=== PATIENT | female | born 1950 | race Caucasian/White ===

== ENCOUNTER 2019-06-29 06:39 | Inpatient (IN) | payer MEDICARE, MEDICAID ==
[2019-06-29] MEDS ORDERED: Sodium Chloride 0.9% 10 ML Syringe FLUSH PRN (07:04)
--- NOTE | 2019-06-29 08:09 | EDM.PDOC ---
ED HPI GENERAL MEDICAL PROBLEM - General Chief Complaint: General Stated Complaint: [facility] Time Seen by Provider: 06/29/19 06:53 Source of Information: Reports: Patient, EMS History Limitations: Reports: No Limitations - History of Present Illness INITIAL COMMENTS - FREE TEXT/NARRATIVE: The patient presents by [facility] because she could not walk to the bathroom this morning. She has a history of MS and she feels she is having a flair up of her MS. She said yesterday she felt a little nauseated and went to bed last night. She woke up this morning and had weakness in both legs with more in the left leg. She does have weakness in her left leg from her MS. She also has weakness in her arms and her hands were shaking. She denies any fever , chills, cough, headache, chest pain, shortness of breath, abdominal pain, vomiting, diarrhea or dysuria. The last time she needed IV steroids was a couple of years ago for a flare. Onset: Gradual Duration: Hour(s): Location: Reports: Generalized Severity: Moderate Improves with: Reports: None Worsens with: Reports: None Associated Symptoms: Reports: Nausea/Vomiting. Denies: Chest Pain, Fever/Chills , Headaches, Shortness of Breath - Related Data Allergies Allergy/AdvReac Type Severity Reaction Status Date / Time acetaminophen [From Percocet] Allergy Cannot Verified 06/29/19 06:47 Remember butorphanol [From Stadol] Allergy Cannot Verified 06/29/19 06:47 Remember glatiramer (copolymer 1) Allergy Cannot Verified 06/29/19 06:47 [From Copaxone] Remember interferon beta-1a Allergy Cannot Verified 06/29/19 06:47 [From Avonex] Remember morphine Allergy Itching Verified 06/29/19 06:47 oxycodone [From Percocet] Allergy Cannot Verified 06/29/19 06:47 Remember Penicillins Allergy Hives Verified 06/29/19 06:47 promethazine [From Phenergan] Allergy Cannot Verified 06/29/19 06:47 Remember Home Meds: Home Meds ARIPiprazole [Abilify] 20 mg PO DAILY 07/19/18 [History] Gabapentin [Neurontin] 600 mg PO QID 07/19/18 [History] Multivitamin [Multivitamins] 1 cap PO DAILY 07/19/18 [History] Omeprazole 40 mg PO DAILY 07/19/18 [History] Ramipril [Altace] 5 mg PO DAILY 07/19/18 [History] SitaGLIPtin [Januvia] 100 mg PO DAILY 07/19/18 [History] Sulfamethoxazole/Trimethoprim [Sulfamethoxazole-Tmp Ss Tablet] 1 tab PO BEDTIME 07/19/18 [History] Teriflunomide [Aubagio] 14 mg PO DAILY 07/19/18 [History] Venlafaxine HCl [Venlafaxine ER] 150 mg PO DAILY 07/19/18 [History] atorvaSTATin [Lipitor] 20 mg PO DAILY 07/19/18 [History] busPIRone [Buspar] 2 tab PO BID 07/19/18 [History] tiZANidine [Zanaflex] 4 mg PO DAILY 07/19/18 [History] traZODone HCl [Trazodone HCl] 50 mg PO BEDTIME 07/19/18 [History] Baclofen 10 mg PO TID 06/29/19 [History] Butalbital/Aspirin/Caffeine [Fiorinal 50-325-40 MG] 1 tab PO Q4HR 06/29/19 [ History] Cholecalciferol (Vitamin D3) [Vitamin D3] 2,000 unit PO DAILY 06/29/19 [History] Ciprofloxacin HCl [Cipro] 250 mg PO BID 06/29/19 [History] Insulin Aspart [NovoLOG] 8 - 15 units SUBCUT TIDMEALS 06/29/19 [History] Insulin Degludec [Tresiba] 54 units SUBCUT DAILY 06/29/19 [History] Naproxen 1 tab PO TID PRN 06/29/19 [History] Solifenacin Succinate [Vesicare] 10 mg PO DAILY 06/29/19 [History] Triamcinolone Acetonide [Triamcinolone Acetonide 0.1% Crm] 1 applic TOP BID [History] Vitamin B Complex 1 tab PO DAILY 06/29/19 [History] cloNIDine [Catapres] 0.1 mg PO BID 06/29/19 [History] cycloSPORINE [Restasis] 1 drop EYEBOTH BID 06/29/19 [History] traMADol [Ultram] 50 mg PO Q4HR PRN 06/29/19 [History] Past Medical History HEENT History: Reports: Cataract, Other (See Below) Other HEENT History: glasses Cardiovascular History: Reports: Hypertension Gastrointestinal History: Reports: GERD, Irritable Bowel Syndrome Genitourinary History: Reports: Urinary Incontinence, Other (See Below) Other Genitourinary History: self cath's, bladder lift [employer]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: , Other (See Below) Other [employer] OPERATOR History: hysterectomy Musculoskeletal History: Reports: Other (See Below) Other Musculoskeletal History: MS, left hip replacement Neurological History: Reports: MS Psychiatric History: Reports: Anxiety, Depression Endocrine/Metabolic History: Reports: Diabetes, Type II, Obesity/BMI 30+ Dermatologic History: Reports: Eczema - Past Surgical History GI Surgical History: Reports: Cholecystectomy - History Comment History Comment: Requesting oral anxiolytic Social & Family History - Tobacco Use Smoking Status *Q: Former Smoker Used Tobacco, but Quit: Yes Month/Year Tobacco Last Used: 10/02/07 - Caffeine Use Caffeine Use: Reports: Coffee, Soda - Recreational Drug Use Recreational Drug Use: No ED ROS GENERAL - Review of Systems Review Of Systems: See Below Constitutional: Reports: No Symptoms HEENT: Reports: No Symptoms Respiratory: Reports: No Symptoms Cardiovascular: Reports: No Symptoms Endocrine: Reports: No Symptoms GI/Abdominal: Reports: Nausea. Denies: Abdominal Pain : Reports: No Symptoms Musculoskeletal: Reports: No Symptoms Skin: Reports: No Symptoms ED EXAM, GENERAL - Physical Exam Exam: See Below Exam Limited By: No Limitations General Appearance: Alert, No Apparent Distress Ears: Normal External Exam Nose: Normal Inspection Head: Atraumatic, Normocephalic Neck: Normal Inspection Respiratory/Chest: No Respiratory Distress, Lungs Clear, Normal Breath Sounds Cardiovascular: Regular Rate, Rhythm, No Edema, No Murmur GI/Abdominal: Soft, Non-Tender, No Organomegaly, No Mass Back Exam: Normal Inspection Extremities: Normal Inspection Neurological: Alert, Oriented, Other (Weakness to both legs with more on the left. Good arm strength) EKG INTERPRETATION EKG Date: 06/29/19 Time: 07:23 Rhythm: NSR Rate (Beats/Min): 86 [place]: Normal P-Wave: Present QRS: Normal ST-T: Normal QT: Normal Course - Vital Signs Last Recorded V/S: Last Vital Signs Temp 97.0 F 06/29/19 06:44 Pulse 85 06/29/19 06:44 Resp 19 06/29/19 09:30 BP 142/64 H 06/29/19 07:30 Pulse Ox 93 L 06/29/19 09:30 - Orders/Labs/Meds Orders: Active Orders 24 hr Category Date Time Status Cardiac Monitoring [RC] . DIRECTED Care 06/29/19 07:04 Active EKG Documentation Completion [RC] STAT Care 06/29/19 07:04 Active Peripheral IV Care [RC] . DIRECTED Care 06/29/19 07:04 Active CXR [Chest 1V Frontal] [CR] Stat Exams 06/29/19 09:30 Ordered Head wo Cont [CT] Stat Exams 06/29/19 07:05 Taken Sodium Chloride 0.9% [Saline Flush] Med 06/29/19 07:04 Active 10 ml FLUSH ASDIRECTED PRN Peripheral IV Insertion Adult [OM.PC] Stat Oth 06/29/19 07:04 Ordered Medication Orders Sodium Chloride (Saline Flush) 10 ml FLUSH ASDIRECTED PRN PRN Reason: Keep Vein Open Last Admin: 06/29/19 07:59 Dose: 10 ml Labs: Laboratory Tests 06/29/19 06/29/19 06/29/19 Range/Units 06:50 06:50 07:53 WBC 14.55 H (3.98-10.04) K/mm3 RBC 4.60 (3.98-5.22) M/mm3 Hgb 13.9 (11.2-15.7) gm/dl Hct 42.5 (34.1-44.9) % MCV 92.4 (79.4-94.8) fl MCH 30.2 (25.6-32.2) pg MCHC 32.7 (32.2-35.5) g/dl RDW Std Deviation 49.6 H (36.4-46.3) fL Plt Count 192 (182-369) K/mm3 MPV 11.5 (9.4-12.3) fl Neut % (Auto) 83.4 H (34.0-71.1) % Lymph % (Auto) 6.8 L (19.3-51.7) % [place] % (Auto) 9.1 (4.7-12.5) % Eos % (Auto) 0.3 L (0.7-5.8) Baso % (Auto) 0.1 (0.1-1.2) % Neut # (Auto) 12.12 H (1.56-6.13) K/mm3 Lymph # (Auto) 0.99 L (1.18-3.74) K/mm3 [place] # (Auto) 1.33 H (0.24-0.36) K/mm3 Eos # (Auto) 0.05 (0.04-0.36) K/mm3 Baso # (Auto) 0.02 (0.01-0.08) K/mm3 Manual Slide Review Abnormal smear Sodium 133 L (136-145) mEq/L Potassium 4.5 (3.5-5.1) mEq/L Chloride 99 (98-107) mEq/L Carbon Dioxide 28 (21-32) mEq/L Anion Gap 10.5 (5-15) BUN 21 H (7-18) mg/dL Creatinine 0.9 (0.55-1.02) mg/dL Est Cr Clr Drug Dosing 47.32 mL/min Estimated GFR (MDRD) > 60 (>60) mL/min BUN/Creatinine Ratio 23.3 H (14-18) Glucose 120 H (80-115) mg/dL Calcium 9.3 (8.5-10.1) mg/dL Total Bilirubin 0.8 (0.2-1.0) mg/dL AST 70 H (15-37) U/L ALT 96 H (14-59) U/L Alkaline Phosphatase 85 (46-116) U/L Troponin I < 0.017 (0.00-0.056) ng/mL Total Protein 6.4 (6.4-8.2) g/dl Albumin 3.4 (3.4-5.0) g/dl Globulin 3.0 gm/dL Albumin/Globulin Ratio 1.1 (1-2) Urine Color Yellow (Yellow) Urine Appearance Clear (Clear) Urine pH 7.0 (5.0-8.0) Ur Specific [place] 1.020 (1.005-1.030) Urine Protein Negative (Negative) Urine Glucose (UA) Negative (Negative) Urine Ketones Negative (Negative) Urine Occult Blood Negative (Negative) Urine Nitrite Negative (Negative) Urine Bilirubin Negative (Negative) Urine Urobilinogen 0.2 (0.2-1.0) Ur Leukocyte Esterase Negative (Negative) Urine RBC Not seen (0-5) /hpf Urine WBC Not seen (0-5) /hpf Ur Epithelial Cells 0-5 (0-5) /hpf Urine Bacteria Not seen (FEW) /hpf Urine Mucus Not seen (FEW) /hpf Meds: Medications Generic Name Dose Route Start Last Admin Trade Name Kami PRN Reason Stop Dose Admin Sodium Chloride 10 ml 06/29/19 07:04 06/29/19 07:59 Saline Flush FLUSH 10 ml ASDIRECTED PRN Administration Keep Vein Open Discontinued Medications Generic Name Dose Route Start Last Admin Trade Name Freq PRN Reason Stop Dose Admin Methylprednisolone Sodium 258 mls @ 258 mls/hr 06/29/19 07:12 06/29/19 07:47 Succinate 1,000 mg/ Sodium IV 06/29/19 07:13 258 mls/hr Chloride ONETIME ONE Administration - Re-Assessments/Exams Free Text/Narrative Re-Assessment/Exam: 06/29/19 08:08 I ordered an IV saline lock, CT of her head, EKG, labs and solu-medrol 1 gram IV. 06/29/19 09:09 Her WBC was slightly elevated at 14.55. Her Na was low at 133. Her glucose is 120. Her AST is 70. Her ALT is 96. Her troponin is negative. Her UA shows no UTI. 06/29/19 09:34 I had my nurse get the patient up and try to walk. She was unsteady and needed help. I do not think she will be safe to go home yet. Her oxygen saturations at times will drip into the upper 80s. Her lungs sounded good and she has no cough. I will have my nurse put her on some oxygen and I will get a CXR. I will call the neurologist semiconductor testing group leader at [facility]. 06/29/19 09:[address] Greco the neurologist semiconductor testing group leader at [facility] and he did recommend the solu-medrol and admission. He did not think she needed to come to [place] at this time. I called Dr Feliciano and he agreed to the admission. Her CXR looks good. Departure - Departure Time of Disposition: 10:00 Disposition: Refer to Observation Condition: Good Clinical Impression: Multiple sclerosis exacerbation, Generalized weakness - Discharge Information Referrals: Nancy Lubin NP [Primary Care Provider] - Forms: ED Department Discharge - My Orders Last 24 Hours: My Active Orders 06/29/19 07:04 Cardiac Monitoring [RC] . DIRECTED EKG Documentation Completion [RC] STAT Peripheral IV Care [RC] . DIRECTED Sodium Chloride 0.9% [Saline Flush] 10 ml FLUSH ASDIRECTED PRN Peripheral IV Insertion Adult [OM.PC] Stat 06/29/19 07:05 Head wo Cont [CT] Stat 06/29/19 09:30 CXR [Chest 1V Frontal] [CR] Stat - Assessment/Plan Last 24 Hours: My Active Orders 06/29/19 07:04 Cardiac Monitoring [RC] . DIRECTED EKG Documentation Completion [RC] STAT Peripheral IV Care [RC] . DIRECTED Sodium Chloride 0.9% [Saline Flush] 10 ml FLUSH ASDIRECTED PRN Peripheral IV Insertion Adult [OM.PC] Stat 06/29/19 07:05 Head wo Cont [CT] Stat 06/29/19 09:30 CXR [Chest 1V Frontal] [CR] Stat
[2019-06-29] MEDS ORDERED: Acetaminophen 325 MG Tab PO PRN (12:50)
[2019-06-29] MEDS ORDERED: Ondansetron 4 MG/2 ML SDV IV PRN (12:50)
[2019-06-29] MEDS ORDERED: traMADol 50 MG Tab PO PRN (13:02)
[2019-06-29] MEDS ORDERED: Triamcinolone Acetonide 0.1% Crm 15 GM Tube TOP PRN (13:02)
[2019-06-29] MEDS ORDERED: Albuterol/Ipratropium 3.0-0.5 MG/3 ML Neb Soln NEB PRN (13:32)
--- NOTE | 2019-06-29 13:45 | PCM.HP.2 ---
H&P History of Present Illness - General Date of Service: 06/29/19 Admit Problem/Dx: Admission Diagnosis/Problem Admission Diagnosis/Problem Multiple sclerosis - History of Present Illness Initial Comments - Free Text/Narative: 69-year-old female with history of MS for 40 years presents to the emergency room with weakness. Patient states that yesterday she developed an upset stomach and generalized weakness. She developed difficulty walking and her hands became shaky and weak. Then she was having difficulty even standing in the shower and was unable to comb her hair because of weakness. She would to bed at 9:00 last night and woke up at 5:00 this morning feeling drunk. Patient rarely drinks and then drink recently. She called a friend and then called EMS. Patient denies any fever, chills, pain, shortness breath, chest pain, nausea, vomiting, headache. She did have 4 loose bowel movements yesterday but no bowel movement today. She denies any hematochezia or melena. When patient arrived in the emergency room she was mildly hypoxic with the oxygen saturation initially at 92%. Recheck showed her to be down to 85%. Patient states that often she is told at the clinic to take deep breaths because she has low oxygenation. She does have a history of smoking and stopped 11 years ago. She smoked between the ages of 19 and 58 off and on up to a pack per day. She has no history of lung disease. She denies any cough, productive sputum, or shortness of breath. She stated yesterday she had some difficulty swallowing which has resolved. In the emergency room a CT of her head, EKG, and chest x-ray were performed. All were normal. Labs included a white count that was slightly elevated at 14.55 , sodium of 133, glucose 120, AST 70, ALT 96, negative troponin, and negative UA for UTI. Patient was given 1 g IV of Solu-Medrol. Dr. Greco in neurology from [facility] in [place] was called by the emergency room physician. Dr. Greco was not convinced that this is an MS exacerbation. It was felt that we would keep her secondary to her weakness and continue her on Solu- Medrol. She is insulin-dependent diabetic. - Related Data Allergies/Adverse Reactions: Allergies Allergy/AdvReac Type Severity Reaction Status Date / Time acetaminophen [From Percocet] Allergy Cannot Verified 06/29/19 06:47 Remember butorphanol [From Stadol] Allergy Cannot Verified 06/29/19 06:47 Remember glatiramer (copolymer 1) Allergy Cannot Verified 06/29/19 06:47 [From Copaxone] Remember interferon beta-1a Allergy Cannot Verified 06/29/19 06:47 [From Avonex] Remember morphine Allergy Itching Verified 06/29/19 06:47 oxycodone [From Percocet] Allergy Cannot Verified 06/29/19 06:47 Remember Penicillins Allergy Hives Verified 06/29/19 06:47 promethazine [From Phenergan] Allergy Cannot Verified 06/29/19 06:47 Remember Home Medications: Home Meds ARIPiprazole [Abilify] 20 mg PO BEDTIME 07/19/18 [History] Gabapentin [Neurontin] 600 mg PO QID 07/19/18 [History] Multivitamin [Multivitamins] 1 cap PO DAILY 07/19/18 [History] Omeprazole 40 mg PO DAILY 07/19/18 [History] Ramipril [Altace] 5 mg PO DAILY 07/19/18 [History] SitaGLIPtin [Januvia] 100 mg PO DAILY 07/19/18 [History] Sulfamethoxazole/Trimethoprim [Sulfamethoxazole-Tmp Ss Tablet] 1 tab PO BEDTIME 07/19/18 [History] Teriflunomide [Aubagio] 14 mg PO DAILY 07/19/18 [History] Venlafaxine HCl [Venlafaxine ER] 150 mg PO DAILY 07/19/18 [History] atorvaSTATin [Lipitor] 20 mg PO DAILY 07/19/18 [History] busPIRone [Buspar] 30 mg PO BID 07/19/18 [History] tiZANidine [Zanaflex] 4 mg PO DAILY 07/19/18 [History] traZODone HCl [Trazodone HCl] 50 mg PO BEDTIME 07/19/18 [History] Baclofen 10 mg PO TID 06/29/19 [History] Cholecalciferol (Vitamin D3) [Vitamin D3] 2,000 unit PO DAILY 06/29/19 [History] Insulin Aspart [NovoLOG] 8 units SUBCUT TIDMEALS 06/29/19 [History] Insulin Degludec [Tresiba] 65 units SUBCUT DAILY 06/29/19 [History] Naproxen 500 mg PO TID PRN 06/29/19 [History] Oxybutynin [Oxybutynin ER] 10 mg PO DAILY 06/29/19 [History] Solifenacin Succinate [Vesicare] 10 mg PO DAILY 06/29/19 [History] Triamcinolone Acetonide [Triamcinolone Acetonide 0.1% Crm] 1 applic TOP BID PRN 06/29/19 [History] Vitamin B Complex 1 tab PO DAILY 06/29/19 [History] cloNIDine [Catapres] 0.1 mg PO BID 06/29/19 [History] cycloSPORINE [Restasis] 1 drop EYEBOTH BID 06/29/19 [History] traMADol [Ultram] 50 mg PO Q4HR PRN 06/29/19 [History] Past Medical History HEENT History: Reports: Cataract, Other (See Below) Other HEENT History: glasses Cardiovascular History: Reports: Hypertension Gastrointestinal History: Reports: GERD, Irritable Bowel Syndrome, Other (See Below) Other Gastrointestinal History: partial bowel obstruction with sx around 1991 Genitourinary History: Reports: Urinary Incontinence, Other (See Below) Other Genitourinary History: self cath's, bladder lift HEMSTITCHER History: Reports: , Other (See Below) Other OB/BYN History: hysterectomy Musculoskeletal History: Reports: Arthritis, Other (See Below) Other Musculoskeletal History: MS, left hip replacement, back sx-laminectomy Neurological History: Reports: MS Psychiatric History: Reports: Anxiety, Depression Endocrine/Metabolic History: Reports: Diabetes, Type II, Obesity/BMI 30+ Dermatologic History: Reports: Eczema - Infectious Disease History Infectious Disease History: Reports: Shingles - Past Surgical History HEENT Surgical History: Reports: Adenoidectomy, Tonsillectomy GI Surgical History: Reports: Cholecystectomy - History Comment History Comment: Requesting oral anxiolytic Social & Family History - Family History Family Medical History: Noncontributory - Tobacco Use Smoking Status *Q: Former Smoker Used Tobacco, but Quit: Yes Month/Year Tobacco Last Used: 10/2007 Second Hand Smoke Exposure: No - Caffeine Use Caffeine Use: Reports: Coffee - Recreational Drug Use Recreational Drug Use: No H&P Review of Systems - Review of Systems: Review Of Systems: ROS reveals no pertinent complaints other than HPI. Exam - Exam Exam: See Below - Vital Signs Vital Signs: Last Vital Signs Temp 97.0 F 06/29/19 06:44 Pulse 85 06/29/19 06:44 Resp 19 06/29/19 09:30 BP 142/64 H 06/29/19 07:30 Pulse Ox 93 L 06/29/19 09:30 Weight: 187 lb 8 oz - Exam Quality Assessment: Supplemental Oxygen General: Alert, Oriented, 4 HEENT: Conjunctiva Clear, EOMI, Hearing Intact, Mucosa Moist & [place], Nares Patent, PERRLA Neck: Supple, Trachea Midline, 2 Lungs: Clear to Auscultation, Normal Respiratory Effort. No: Wheezing Cardiovascular: Regular Rate, Regular Rhythm GI/Abdominal Exam: Normal Bowel Sounds, Soft, Non-Tender, No Organomegaly, No Distention, No Abnormal Bruit, No Mass Extremities: Normal Inspection, Normal Range of Motion, Non-Tender, No Pedal Edema, Normal Capillary Refill Skin: Warm, Dry, Intact Neurological: Cranial Nerves Intact Neuro Extensive - Mental Status: Alert, Oriented x3, Normal Mood/Affect, Normal Cognition, Memory Intact Neuro Extensive - Motor, Sensory, Reflexes: CN II-XII Intact, Other ( generalized weaknessin her upper and lower extremities.). No: Tremor Psychiatric: Alert, Normal Affect, Normal Mood - Patient Data Lab Results Last 24 hrs: Laboratory Results - last 24 hr 06/29/19 06/29/19 06/29/19 Range/Units 06:50 06:50 07:53 WBC 14.55 H (3.98-10.04) K/mm3 RBC 4.60 (3.98-5.22) M/mm3 Hgb 13.9 (11.2-15.7) gm/dl Hct 42.5 (34.1-44.9) % MCV 92.4 (79.4-94.8) fl MCH 30.2 (25.6-32.2) pg MCHC 32.7 (32.2-35.5) g/dl RDW Std Deviation 49.6 H (36.4-46.3) fL Plt Count 192 (182-369) K/mm3 MPV 11.5 (9.4-12.3) fl Neut % (Auto) 83.4 H (34.0-71.1) % Lymph % (Auto) 6.8 L (19.3-51.7) % [place] % (Auto) 9.1 (4.7-12.5) % Eos % (Auto) 0.3 L (0.7-5.8) Baso % (Auto) 0.1 (0.1-1.2) % Neut # (Auto) 12.12 H (1.56-6.13) K/mm3 Lymph # (Auto) 0.99 L (1.18-3.74) K/mm3 [place] # (Auto) 1.33 H (0.24-0.36) K/mm3 Eos # (Auto) 0.05 (0.04-0.36) K/mm3 Baso # (Auto) 0.02 (0.01-0.08) K/mm3 Manual Slide Review Abnormal smear Sodium 133 L (136-145) mEq/L Potassium 4.5 (3.5-5.1) mEq/L Chloride 99 (98-107) mEq/L Carbon Dioxide 28 (21-32) mEq/L Anion Gap 10.5 (5-15) BUN 21 H (7-18) mg/dL Creatinine 0.9 (0.55-1.02) mg/dL Est Cr Clr Drug Dosing 47.32 mL/min Estimated GFR (MDRD) > 60 (>60) mL/min BUN/Creatinine Ratio 23.3 H (14-18) Glucose 120 H (80-115) mg/dL Calcium 9.3 (8.5-10.1) mg/dL Total Bilirubin 0.8 (0.2-1.0) mg/dL AST 70 H (15-37) U/L ALT 96 H (14-59) U/L Alkaline Phosphatase 85 (46-116) U/L Troponin I < 0.017 (0.00-0.056) ng/mL Total Protein 6.4 (6.4-8.2) g/dl Albumin 3.4 (3.4-5.0) g/dl Globulin 3.0 gm/dL Albumin/Globulin Ratio 1.1 (1-2) Urine Color Yellow (Yellow) Urine Appearance Clear (Clear) Urine pH 7.0 (5.0-8.0) Ur Specific [place] 1.020 (1.005-1.030) Urine Protein Negative (Negative) Urine Glucose (UA) Negative (Negative) Urine Ketones Negative (Negative) Urine Occult Blood Negative (Negative) Urine Nitrite Negative (Negative) Urine Bilirubin Negative (Negative) Urine Urobilinogen 0.2 (0.2-1.0) Ur Leukocyte Esterase Negative (Negative) Urine RBC Not seen (0-5) /hpf Urine WBC Not seen (0-5) /hpf Ur Epithelial Cells 0-5 (0-5) /hpf Urine Bacteria Not seen (FEW) /hpf Urine Mucus Not seen (FEW) /hpf Result Diagrams: 06/29/19 06:50 06/29/19 06:50 Problem List Initiated/Reviewed/Updated: Yes Orders Last 24hrs: Active Orders 24 hr Category Date Time Status Patient Status [ADT] Routine ADT 06/29/19 12:51 Active Blood Glucose Check, Bedside [RC] WITHMEALSANDBED Care 06/29/19 12:50 Active Cardiac Monitoring [RC] . DIRECTED Care 06/29/19 07:04 Active EKG Documentation Completion [RC] STAT Care 06/29/19 07:04 Active Oxygen Therapy [RC] PRN Care 06/29/19 12:51 Active Peripheral IV Care [RC] Q2HR Care 06/29/19 07:04 Active RT Aerosol Therapy [RC] ASDIRECTED Care 06/29/19 13:33 Ordered RT Incentive Spirometry [RC] ASDIRECTED Care 06/29/19 13:32 Ordered Up With Assistance [RC] ASDIRECTED Care 06/29/19 12:50 Active VTE/DVT Education [RC] PER UNIT ROUTINE Care 06/29/19 12:51 Active Vital Signs [RC] Q4H Care 06/29/19 12:51 Active OT Evaluation and Treatment [CONS] Routine Cons 06/29/19 12:54 Active PT Evaluation and Treatment [CONS] Routine Cons 06/29/19 12:54 Active Consistent Carbohydrate Diet [DIET] Diet 06/29/19 Dinner Active CXR [Chest 1V Frontal] [CR] Stat Exams 06/29/19 09:30 Taken Head wo Cont [CT] Stat Exams 06/29/19 07:05 Taken CBC WITH AUTO DIFF [HEME] AM Lab 06/30/19 05:11 Ordered CBC WITH AUTO DIFF [HEME] AM Lab 07/01/19 05:11 Ordered CBC WITH AUTO DIFF [HEME] AM Lab 07/02/19 05:11 Ordered CBC WITH AUTO DIFF [HEME] AM Lab 07/03/19 05:11 Ordered CBC WITH AUTO DIFF [HEME] AM Lab 07/04/19 05:11 Ordered CBC WITH AUTO DIFF [HEME] AM Lab 07/05/19 05:11 Ordered COMPREHENSIVE METABOLIC PN,CMP [CHEM] AM Lab 06/30/19 05:11 Ordered COMPREHENSIVE METABOLIC PN,CMP [CHEM] AM Lab 07/01/19 05:11 Ordered COMPREHENSIVE METABOLIC PN,CMP [CHEM] AM Lab 07/02/19 05:11 Ordered COMPREHENSIVE METABOLIC PN,CMP [CHEM] AM Lab 07/03/19 05:11 Ordered COMPREHENSIVE METABOLIC PN,CMP [CHEM] AM Lab 07/04/19 05:11 Ordered COMPREHENSIVE METABOLIC PN,CMP [CHEM] AM Lab 07/05/19 05:11 Ordered MAGNESIUM [CHEM] AM Lab 06/30/19 05:11 Ordered MAGNESIUM [CHEM] AM Lab 07/01/19 05:11 Ordered MAGNESIUM [CHEM] AM Lab 07/02/19 05:11 Ordered MAGNESIUM [CHEM] AM Lab 07/03/19 05:11 Ordered MAGNESIUM [CHEM] AM Lab 07/04/19 05:11 Ordered MAGNESIUM [CHEM] AM Lab 07/05/19 05:11 Ordered ARIPiprazole [Abilify] Med 06/30/19 21:00 Active 20 mg PO BEDTIME Acetaminophen [Tylenol] Med 06/29/19 12:50 Active 650 mg PO Q4H PRN Albuterol/Ipratropium [DuoNeb 3.0-0.5 MG/3 ML] Med 06/29/19 13:32 Ordered 3 ml NEB Q4HRRT PRN Alogliptin Benzoate [Alogliptin] Med 06/30/19 09:00 Active 25 mg PO DAILY Baclofen [Lioresal] Med 06/29/19 15:00 Active 10 mg PO TID Cholecalciferol (Vitamin D3) [Vitamin D3] Med 06/30/19 09:00 Active 50 mcg PO DAILY Enoxaparin [Lovenox] Med 06/30/19 09:00 Active 40 mg SUBCUT DAILY Gabapentin [Neurontin] Med 06/29/19 17:00 Active 600 mg PO QID Insulin Degludec [Tresiba] Med 06/30/19 09:00 Ordered 65 units SUBCUT DAILY Insulin Lispro [HumaLOG] Med 06/29/19 17:00 Active 8 unit SUBCUT TIDMEALS Insulin Lispro [HumaLOG] Med 06/29/19 17:00 Ordered See Protocol SUBCUT QIDACANDBED Lisinopril [Prinivil] Med 06/30/19 09:00 Active 10 mg PO DAILY Multivitamins,Therapeutic [Thera] Med 06/30/19 09:00 Active 1 each PO DAILY Ondansetron [Zofran] Med 06/29/19 12:50 Active 4 mg IV Q4H PRN Oxybutynin [Oxybutynin ER] Med 06/30/19 09:00 Active 10 mg PO DAILY Pantoprazole [ProTONIX] Med 06/30/19 07:00 Active 40 mg PO DAILY@0700 Simvastatin [Zocor] Med 06/30/19 21:00 Active 20 mg PO BEDTIME Sodium Chloride 0.9% [Saline Flush] Med 06/29/19 07:04 Active 10 ml FLUSH ASDIRECTED PRN Sulfamethoxazole/Trimethoprim Med 06/29/19 21:00 Pending 1 tab PO BEDTIME Teriflunomide [Aubagio] Med 06/30/19 09:00 Pending 14 mg PO DAILY Triamcinolone Acetonide [Triamcinolone Acetonide 0.1% Med 06/29/19 13:02 Active Crm] 0 gm TOP BID PRN Trospium [Sanctura] Med 06/30/19 09:00 Active 20 mg PO BID Venlafaxine [Effexor XR] Med 06/30/19 09:00 Active 150 mg PO DAILY Vitamin B Complex Med 06/30/19 09:00 Pending 1 tab PO DAILY busPIRone [Buspar] Med 06/29/19 21:00 Active 30 mg PO BID cloNIDine [Catapres] Med 06/29/19 21:00 Active 0.1 mg PO BID cycloSPORINE Med 06/29/19 21:00 Ordered 1 drop EYEBOTH BID methylPREDNISolone Sod Succ [Solu-MEDROL] Med 06/30/19 09:00 Ordered 1,000 mg IVPUSH DAILY tiZANidine [Zanaflex] Med 06/30/19 09:00 Active 4 mg PO DAILY traMADol [Ultram] Med 06/29/19 13:02 Active 50 mg PO Q4HR PRN traZODone Med 06/29/19 21:00 Active 50 mg PO BEDTIME Peripheral IV Insertion Adult [OM.PC] Stat Oth 06/29/19 07:04 Ordered Resuscitation Status Routine Resus Stat 06/29/19 12:50 Ordered Medication Orders Acetaminophen (Tylenol) 650 mg PO Q4H PRN PRN Reason: Pain (Mild 1-3)/fever Albuterol/Ipratropium (Duoneb 3.0-0.5 Mg/3 Ml) 3 ml NEB Q4HRRT PRN PRN Reason: Hypoxia Alogliptin Benzoate (Alogliptin) 25 mg PO DAILY [facility] Aripiprazole (Abilify) 20 mg PO BEDTIME [facility] Baclofen (Lioresal) 10 mg PO TID [facility] Buspirone HCl (Buspar) 30 mg PO BID [facility] Cholecalciferol (Vitamin D3) 50 mcg PO DAILY [facility] Clonidine HCl (Catapres) 0.1 mg PO BID [facility] Enoxaparin Sodium (Lovenox) 40 mg SUBCUT DAILY [facility] Gabapentin (Neurontin) 600 mg PO QID [facility] Insulin Glargine (Lantus) 65 unit SUBCUT DAILY [facility] Insulin Human Lispro (Humalog) 8 unit SUBCUT TIDMEALS [facility] Insulin Human Lispro (Humalog) 0 unit SUBCUT QIDACANDBED [facility]; Protocol Lisinopril (Prinivil) 10 mg PO DAILY [facility] Multivitamins (Thera) 1 each PO DAILY [facility] Non-Formulary Medication (Cyclosporine) 1 drop EYEBOTH BID [facility] Non-Formulary Medication (Sulfamethoxazole/Trimethoprim) 1 tab PO BEDTIME [facility] Non-Formulary Medication (Teriflunomide [Aubagio]) 14 mg PO DAILY [facility] Non-Formulary Medication (Vitamin B Complex) 1 tab PO DAILY [facility] Ondansetron HCl (Zofran) 4 mg IV Q4H PRN PRN Reason: Nausea/Vomiting Oxybutynin Chloride (Oxybutynin Er) 10 mg PO DAILY [facility] Pantoprazole Sodium (Protonix) 40 mg PO DAILY@0700 [facility] Simvastatin (Zocor) 20 mg PO BEDTIME [facility] Sodium Chloride (Saline Flush) 10 ml FLUSH ASDIRECTED PRN PRN Reason: Keep Vein Open Last Admin: 06/29/19 07:59 Dose: 10 ml Tizanidine HCl (Zanaflex) 4 mg PO DAILY [facility] Tramadol HCl (Ultram) 50 mg PO Q4HR PRN PRN Reason: Pain Trazodone HCl (Trazodone) 50 mg PO BEDTIME [facility] Triamcinolone Acetonide (Triamcinolone Acetonide 0.1% Crm) 0 gm TOP BID PRN PRN Reason: eczema Trospium (Sanctura) 20 mg PO BID [facility] Venlafaxine HCl (Effexor Xr) 150 mg PO DAILY [facility] Assessment/Plan Comment:: Assessment * 69-year-old female with history of multiple sclerosis admitted for generalized weakness - I spoke to Dr. Greco and he stated we could try a Medrol 1 g for 3 days. He stated that if this is an MS exacerbation and will take days to weeks for resolution. We could do up to 5 days of steroids, but because of her diabetes we could limited to 3 days. * Hypoxemia with no known lung disease. Patient does have a 29 year history of smoking, stopped 11 years ago. * Insulin-dependent diabetes * Chronic medical issues including arthritis, diabetes, hyperlipidemia, hypertension, anxiety/depression Plan * admit to MedSurg * Solu-Medrol 1 g daily for 3 days * continue home insulin and add sliding scale. * Fingerstick blood sugar 4 times a day * FiO2 to keep SPO2 greater than 92%. * Incidental spirometry and nebulizers when necessary * Reconcile home meds * MRI of the brain on Monday * PT/OT/speech therapy - not available on weekends * VTE prophylaxis with Lovenox * CODE STATUS full code * Length of stay 2-3 days - Mortality Measure Prognosis:: Poor
[2019-06-29] MEDS: Baclofen 10 MG Tab PO SCH ×2 (14:55→21:40)
[2019-06-29] MEDS: Insulin Lispro 100 Units/ML 3 ML Vial SUBCUT SCH ×3 (16:22→21:44)
[2019-06-29] MEDS: Gabapentin 600 MG Tab PO SCH ×2 (16:23→21:40)
[2019-06-29] MEDS: busPIRone 15 MG Tab PO SCH (21:37)
[2019-06-29] MEDS: cloNIDine 0.1 MG Tab PO SCH (21:38)
[2019-06-29] MEDS: RESTASIS EYE EYEBOTH SCH (21:39)
[2019-06-29] MEDS: traZODone 50 MG Tab PO SCH (21:40)
[2019-06-29] MEDS: Sulfamethoxazole/Trimethoprim 800-160 MG Tab PO SCH (21:40)
[2019-06-30] MEDS: Pantoprazole 40 MG Tab.CR PO SCH (07:19)
[2019-06-30] MEDS: Insulin Lispro 100 Units/ML 3 ML Vial SUBCUT SCH ×7 (08:06→21:06)
[2019-06-30] MEDS: Multivitamins,Therapeutic Tab PO SCH (08:34)
[2019-06-30] MEDS: Vitamin B Complex With Vitamin C Cap PO SCH (08:35)
[2019-06-30] MEDS: Lisinopril 10 MG Tab PO SCH (08:36)
[2019-06-30] MEDS: Cholecalciferol (Vitamin D3) 25 MCG Tab PO SCH (08:37)
[2019-06-30] MEDS: Oxybutynin 5 MG Tab.ER PO SCH (08:37)
[2019-06-30] MEDS: Trospium 20 MG Tab PO SCH ×2 (08:38→21:02)
[2019-06-30] MEDS: Gabapentin 600 MG Tab PO SCH ×4 (08:39→21:00)
[2019-06-30] MEDS: cloNIDine 0.1 MG Tab PO SCH ×2 (08:40→21:02)
[2019-06-30] MEDS: Baclofen 10 MG Tab PO SCH ×3 (08:40→21:01)
[2019-06-30] MEDS: busPIRone 15 MG Tab PO SCH ×2 (08:42→21:00)
[2019-06-30] MEDS: Venlafaxine 75 MG Cap.ER PO SCH (08:43)
[2019-06-30] MEDS: tiZANidine 4 MG Tab PO SCH (08:43)
[2019-06-30] MEDS: Enoxaparin 40 MG/0.4 ML Syringe SUBCUT SCH (08:44)
[2019-06-30] MEDS: Insulin Glarg,Human.Rec.Analog 100 UNIT/ML ML SUBCUT SCH (08:45)
[2019-06-30] MEDS: TERIFLUNOMIDE 14 MG PO SCH (08:57)
[2019-06-30] MEDS ORDERED: methylPREDNISolone Sodium Succinate 125 MG/2 ML SDV IVPUSH SCH (09:00)
[2019-06-30] MEDS: RESTASIS EYE EYEBOTH SCH ×2 (09:30→21:05)
--- NOTE | 2019-06-30 10:57 | CT ---
Head CT Technique: Multiple axial sections through the brain were obtained. Intravenous contrast was not utilized. Comparison: Prior head CT exam of 10/31/09 and most recent intracranial imaging MRI brain on 12/13/17. Findings: Ventricles along with basal cisterns and sulci over the convexities are within normal limits for the patient's age. Mild areas of diminished density are noted within the periventricular white matter which appear stable from previous MRI. No other abnormal parenchymal densities are seen. No evidence of intracranial hemorrhage. No midline shift or mass effect is seen. Bone window settings were reviewed which show no acute calvarial abnormality. Visualized sinuses are clear. Impression: 1. Nothing acute is appreciated on noncontrast head CT study. Diagnostic code #2 I agree with preliminary report from [facility], finalized on 06/29/19, 9:40 AM Central Time
--- NOTE | 2019-06-30 10:57 | CR ---
Chest: Portable view of the chest was obtained. Comparison: No prior chest imaging. Heart size and mediastinum are within normal limits for portable technique. Lungs are clear with no acute parenchymal change. Slight scoliosis is noted within the spine. Mild degenerative change is noted within the shoulders. Impression: 1. Findings as noted above. Nothing acute is appreciated on portable chest x-ray. Diagnostic code #2
--- NOTE | 2019-06-30 15:15 | PCM.PN ---
- General Info Date of Service: 06/30/19 Admission Dx/Problem (Free Text): Admission Diagnosis/Problem Admission Diagnosis/Problem Multiple sclerosis Subjective Update: Karina states she is feeling better and having more strength. - Review of Systems General: Reports: Weakness HEENT: Reports: No Symptoms Pulmonary: Reports: No Symptoms Cardiovascular: Reports: No Symptoms Gastrointestinal: Reports: No Symptoms - Patient Data Vitals - Most Recent: Last Vital Signs Temp 97.3 F 06/30/19 12:18 Pulse 75 06/30/19 12:18 Resp 14 06/30/19 12:18 BP 131/77 06/30/19 12:18 Pulse Ox 92 L 06/30/19 12:18 Weight - Most Recent: 185 lb 14.4 oz I&O - Last 24 Hours: Intake & Output 06/30/19 06/30/19 06/30/19 06:59 14:59 22:59 Intake Total 350 660 Output Total 1750 Balance -1400 660 Lab Results Last 24 Hours: Laboratory Results - last 24 hr 06/30/19 06/30/19 Range/Units 04:18 04:18 WBC 17.63 H (3.98-10.04) K/mm3 RBC 4.59 (3.98-5.22) M/mm3 Hgb 13.9 (11.2-15.7) gm/dl Hct 42.2 (34.1-44.9) % MCV 91.9 (79.4-94.8) fl MCH 30.3 (25.6-32.2) pg MCHC 32.9 (32.2-35.5) g/dl RDW Std Deviation 49.7 H (36.4-46.3) fL Plt Count 190 (182-369) K/mm3 MPV 12.0 (9.4-12.3) fl Neut % (Auto) 88.1 H (34.0-71.1) % Lymph % (Auto) 5.2 L (19.3-51.7) % [place] % (Auto) 6.5 (4.7-12.5) % Eos % (Auto) 0 L (0.7-5.8) Baso % (Auto) 0.0 L (0.1-1.2) % Neut # (Auto) 15.55 H (1.56-6.13) K/mm3 Lymph # (Auto) 0.91 L (1.18-3.74) K/mm3 [place] # (Auto) 1.14 H (0.24-0.36) K/mm3 Eos # (Auto) 0.00 L (0.04-0.36) K/mm3 Baso # (Auto) 0.00 L (0.01-0.08) K/mm3 Manual Slide Review Abnormal smear Sodium 138 (136-145) mEq/L Potassium 4.3 (3.5-5.1) mEq/L Chloride 103 (98-107) mEq/L Carbon Dioxide 26 (21-32) mEq/L Anion Gap 13.3 (5-15) BUN 18 (7-18) mg/dL Creatinine 0.7 (0.55-1.02) mg/dL Est Cr Clr Drug Dosing 60.84 mL/min Estimated GFR (MDRD) > 60 (>60) mL/min BUN/Creatinine Ratio 25.7 H (14-18) Glucose 167 H (80-115) mg/dL Calcium 9.3 (8.5-10.1) mg/dL Magnesium 1.9 (1.8-2.4) mg/dl Total Bilirubin 0.5 (0.2-1.0) mg/dL AST 33 (15-37) U/L ALT 71 H (14-59) U/L Alkaline Phosphatase 75 (46-116) U/L Total Protein 6.5 (6.4-8.2) g/dl Albumin 3.1 L (3.4-5.0) g/dl Globulin 3.4 gm/dL Albumin/Globulin Ratio 0.9 L (1-2) Med Orders - Current: Current Medications Acetaminophen (Tylenol) 650 mg PO Q4H PRN PRN Reason: Pain (Mild 1-3)/fever Albuterol/Ipratropium (Duoneb 3.0-0.5 Mg/3 Ml) 3 ml NEB Q4HRRT PRN PRN Reason: Hypoxia Alogliptin Benzoate (Alogliptin) 25 mg PO DAILY [facility] Last Admin: 06/30/19 08:38 Dose: 25 mg Aripiprazole (Abilify) 20 mg PO BEDTIME KAREN Baclofen (Lioresal) 10 mg PO TID KAREN Last Admin: 06/30/19 14:41 Dose: 10 mg Buspirone HCl (Buspar) 30 mg PO BID [facility] Last Admin: 06/30/19 08:42 Dose: 30 mg Cholecalciferol (Vitamin D3) 50 mcg PO DAILY [facility] Last Admin: 06/30/19 08:37 Dose: 50 mcg Clonidine HCl (Catapres) 0.1 mg PO BID [facility] Last Admin: 06/30/19 08:40 Dose: 0.1 mg Enoxaparin Sodium (Lovenox) 40 mg SUBCUT DAILY [facility] Last Admin: 06/30/19 08:44 Dose: 40 mg Gabapentin (Neurontin) 600 mg PO QID [facility] Last Admin: 06/30/19 12:58 Dose: 600 mg Methylprednisolone Sodium Succinate 1,000 mg/ Sodium Chloride 258 mls @ 258 mls /hr IV DAILY [facility] Stop: 07/01/19 09:59 Last Admin: 06/30/19 08:58 Dose: 258 mls/hr Insulin Glargine (Lantus) 65 unit SUBCUT DAILY [facility] Last Admin: 06/30/19 08:45 Dose: 65 units Insulin Human Lispro (Humalog) 8 unit SUBCUT TIDMEALS [facility] Last Admin: 06/30/19 12:56 Dose: 8 units Insulin Human Lispro (Humalog) 0 unit SUBCUT QIDACANDBED [facility]; Protocol Last Admin: 06/30/19 12:57 Dose: 1 units Lisinopril (Prinivil) 10 mg PO DAILY [facility] Last Admin: 06/30/19 08:36 Dose: 10 mg Multivitamins (Thera) 1 each PO DAILY [facility] Last Admin: 06/30/19 08:34 Dose: Not Given Restasis Eye Drops * (*Own Med) 0 drop EYEBOTH BID [facility] Last Admin: 06/30/19 09:30 Dose: 1 drop Teriflunomide 14 Mg (Tabs Own Med) 0 mg PO DAILY [facility] Last Admin: 06/30/19 08:57 Dose: 14 mg Ondansetron HCl (Zofran) 4 mg IV Q4H PRN PRN Reason: Nausea/Vomiting Oxybutynin Chloride (Oxybutynin Er) 10 mg PO DAILY [facility] Last Admin: 06/30/19 08:37 Dose: 10 mg Pantoprazole Sodium (Protonix) 40 mg PO DAILY@0700 [facility] Last Admin: 06/30/19 07:19 Dose: 40 mg Simvastatin (Zocor) 20 mg PO BEDTIME [facility] Sodium Chloride (Saline Flush) 10 ml FLUSH ASDIRECTED PRN PRN Reason: Keep Vein Open Last Admin: 06/29/19 07:59 Dose: 10 ml Tizanidine HCl (Zanaflex) 4 mg PO DAILY [facility] Last Admin: 06/30/19 08:43 Dose: 4 mg Tramadol HCl (Ultram) 50 mg PO Q4HR PRN PRN Reason: Pain Trazodone HCl (Trazodone) 50 mg PO BEDTIME [facility] Last Admin: 06/29/19 21:40 Dose: 50 mg Triamcinolone Acetonide (Triamcinolone Acetonide 0.1% Crm) 0 gm TOP BID PRN PRN Reason: eczema Trimethoprim/Sulfamethoxazole (Septra Ds) 1 tab PO BEDTIME [facility] Last Admin: 06/29/19 21:40 Dose: 1 tab Trospium (Sanctura) 20 mg PO BID [facility] Last Admin: 06/30/19 08:38 Dose: 20 mg Venlafaxine HCl (Effexor Xr) 150 mg PO DAILY [facility] Last Admin: 06/30/19 08:43 Dose: 150 mg Vitamin B Complex/Vitamin C (Super B With Vitamin C) 1 cap PO DAILY [facility] Last Admin: 06/30/19 08:35 Dose: Not Given Discontinued Medications Methylprednisolone Sodium Succinate 1,000 mg/ Sodium Chloride 258 mls @ 258 mls /hr IV ONETIME ONE Stop: 06/29/19 07:13 Last Admin: 06/29/19 07:47 Dose: 258 mls/hr Methylprednisolone Sodium Succinate (Solu-Medrol) 1,000 mg IVPUSH DAILY [facility] Stop: 07/01/19 09:01 - Exam General: Alert, Oriented HEENT: Pupils Equal Neck: Supple Lungs: Clear to Auscultation, Normal Respiratory Effort Cardiovascular: Regular Rate, Regular Rhythm GI/Abdominal Exam: Normal Bowel Sounds, Soft, Non-Tender, No Organomegaly, No Distention Extremities: Normal Inspection, Normal Range of Motion, Non-Tender, No Pedal Edema Skin: Warm, Dry, Intact Psy/Mental Status: Alert, Normal Affect, Normal Mood - Problem List Review Problem List Initiated/Reviewed/Updated: Yes - My Orders Last 24 Hours: My Active Orders 06/29/19 15:00 Baclofen [Lioresal] 10 mg PO TID 06/29/19 17:00 Gabapentin [Neurontin] 600 mg PO QID Insulin Lispro [HumaLOG] 8 unit SUBCUT TIDMEALS Insulin Lispro [HumaLOG] See Protocol SUBCUT QIDACANDBED 06/29/19 21:00 Sulfamethoxazole/Trimethoprim [Septra DS] 1 tab PO BEDTIME busPIRone [Buspar] 30 mg PO BID cloNIDine [Catapres] 0.1 mg PO BID cycloSPORINE 0 drop EYEBOTH BID traZODone 50 mg PO BEDTIME 06/29/19 22:00 Communication Order [RC] BID 06/29/19 Dinner Consistent Carbohydrate Diet [DIET] 06/30/19 07:00 Pantoprazole [ProTONIX] 40 mg PO DAILY@0700 06/30/19 09:00 Alogliptin Benzoate [Alogliptin] 25 mg PO DAILY Cholecalciferol (Vitamin D3) [Vitamin D3] 50 mcg PO DAILY Enoxaparin [Lovenox] 40 mg SUBCUT DAILY Insulin Glarg,Human.Rec.Analog [LantUS] 65 unit SUBCUT DAILY Lisinopril [Prinivil] 10 mg PO DAILY Multivitamins,Therapeutic [Thera] 1 each PO DAILY Oxybutynin [Oxybutynin ER] 10 mg PO DAILY Teriflunomide [Aubagio] 0 mg PO DAILY Trospium [Sanctura] 20 mg PO BID Venlafaxine [Effexor XR] 150 mg PO DAILY Vitamin B Complex with C [Super B With Vitamin C] 1 cap PO DAILY methylPREDNISolone Sod Succ [Solu-MEDROL] 1,000 mg Sodium Chloride 0.9% [ Normal Saline] 250 ml IV DAILY tiZANidine [Zanaflex] 4 mg PO DAILY 06/30/19 21:00 ARIPiprazole [Abilify] 20 mg PO BEDTIME Simvastatin [Zocor] 20 mg PO BEDTIME 07/01/19 05:11 CBC WITH AUTO DIFF [HEME] AM COMPREHENSIVE METABOLIC PN,CMP [CHEM] AM MAGNESIUM [CHEM] AM 07/01/19 08:00 Brain wo Cont [MR] Routine 07/02/19 05:11 CBC WITH AUTO DIFF [HEME] AM COMPREHENSIVE METABOLIC PN,CMP [CHEM] AM MAGNESIUM [CHEM] AM 10/02/19 05:11 CBC WITH AUTO DIFF [HEME] AM COMPREHENSIVE METABOLIC PN,CMP [CHEM] AM MAGNESIUM [CHEM] AM 07/04/19 05:11 CBC WITH AUTO DIFF [HEME] AM COMPREHENSIVE METABOLIC PN,CMP [CHEM] AM MAGNESIUM [CHEM] AM 07/05/19 05:11 CBC WITH AUTO DIFF [HEME] AM COMPREHENSIVE METABOLIC PN,CMP [CHEM] AM MAGNESIUM [CHEM] AM - Plan Plan:: Assessment * 69-year-old female with history of multiple sclerosis admitted for generalized weakness - I spoke to Dr. Greco and he stated we could try a Solu- Medrol 1 g for 3 days. He stated that if this is an MS exacerbation and will take days to weeks for resolution. We could do up to 5 days of steroids, but because of her diabetes we could limited to 3 days. * Hypoxemia with no known lung disease. Patient does have a 29 year history of smoking, stopped 11 years ago. * Insulin-dependent diabetes * Chronic medical issues including arthritis, diabetes, hyperlipidemia, hypertension, anxiety/depression Plan * admit to MedSurg * Solu-Medrol 1 g daily for 3-5 days * continue home insulin and add sliding scale. * Fingerstick blood sugar 4 times a day * FiO2 to keep SPO2 greater than 92%. * Incidental spirometry and nebulizers when necessary * Reconcile home meds * MRI of the brain on Monday * PT/OT/speech therapy - not available on weekends * VTE prophylaxis with Lovenox * CODE STATUS full code * Length of stay 2-3 days
[2019-06-30] MEDS ORDERED: Simvastatin 20 MG Tab PO SCH (21:00)
[2019-06-30] MEDS: Sulfamethoxazole/Trimethoprim 800-160 MG Tab PO SCH (21:00)
[2019-06-30] MEDS ORDERED: ARIPiprazole 10 MG Tab PO SCH (21:00)
[2019-06-30] MEDS: traZODone 50 MG Tab PO SCH (21:01)
[2019-07-01] MEDS ORDERED: Magnesium Hydroxide 400 MG/5 ML Susp 30 ML Cup PO ONE (06:00)
[2019-07-01] MEDS: Pantoprazole 40 MG Tab.CR PO SCH (06:13)
[2019-07-01] MEDS: Cholecalciferol (Vitamin D3) 25 MCG Tab PO SCH (08:53)
[2019-07-01] MEDS: Trospium 20 MG Tab PO SCH (08:53)
[2019-07-01] MEDS: Multivitamins,Therapeutic Tab PO SCH ×2 (08:53→09:19)
[2019-07-01] MEDS: Oxybutynin 5 MG Tab.ER PO SCH (08:53)
[2019-07-01] MEDS: Lisinopril 10 MG Tab PO SCH (08:53)
[2019-07-01] MEDS: Venlafaxine 75 MG Cap.ER PO SCH (08:54)
[2019-07-01] MEDS: Vitamin B Complex With Vitamin C Cap PO SCH ×2 (08:54→09:19)
[2019-07-01] MEDS: busPIRone 15 MG Tab PO SCH ×2 (08:54→09:18)
[2019-07-01] MEDS: cloNIDine 0.1 MG Tab PO SCH ×2 (08:54→09:14)
[2019-07-01] MEDS: Gabapentin 600 MG Tab PO SCH ×2 (08:54→13:31)
[2019-07-01] MEDS: Baclofen 10 MG Tab PO SCH ×2 (08:55→13:32)
[2019-07-01] MEDS: tiZANidine 4 MG Tab PO SCH (08:55)
[2019-07-01] MEDS: Insulin Glarg,Human.Rec.Analog 100 UNIT/ML ML SUBCUT SCH (08:55)
[2019-07-01] MEDS: Enoxaparin 40 MG/0.4 ML Syringe SUBCUT SCH (08:56)
[2019-07-01] MEDS: Insulin Lispro 100 Units/ML 3 ML Vial SUBCUT SCH ×4 (08:56→12:08)
[2019-07-01] MEDS: TERIFLUNOMIDE 14 MG PO SCH (09:19)
[2019-07-01] MEDS: RESTASIS EYE EYEBOTH SCH (09:19)
[2019-07-01] MEDS ORDERED: Gadobenate Dimeglumine 529 MG/ML 20 ML SDV IVPUSH ONE (10:36)
[2019-07-01] MEDS ORDERED: Sodium Chloride 0.9% 10 ML Syringe FLUSH SCH (10:45)
--- NOTE | 2019-07-01 12:25 | MR ---
MRI brain (without and with intravenous contrast) Technique: T1 sagittal; T2, T2 FLAIR, T1 and diffusion axial; T1 coronal; post-contrast T1 axial and post-contrast T1 coronal images were obtained to the brain. Comparison: Previous MRI brain of 12/13/17. Findings: Ventricles along with basal cisterns and sulci over the convexities are within normal limits for the patient's age. Multiple areas of increased signal are noted within the periventricular and within the subcortical white matter which is felt to be fairly stable from previous MRI. I do not see any new areas of abnormal white matter signal. There are no areas of abnormal diffusion. No areas of abnormal enhancement are seen. No midline shift or mass effect is seen. Impression: 1. Multiple areas of increased signal within the subcortical and periventricular white matter which appears similar to prior MRI. No new abnormality is seen. 2. No abnormal enhancement or abnormal diffusion is seen. Diagnostic code #2
--- NOTE | 2019-07-01 12:32 | PCM.DCSUM1 ---
Discharge Summary - Hospital Course HPI Initial Comments: 69-year-old female with history of MS for 40 years presents to the emergency room with weakness. Patient states that yesterday she developed an upset stomach and generalized weakness. She developed difficulty walking and her hands became shaky and weak. Then she was having difficulty even standing in the shower and was unable to comb her hair because of weakness. She would to bed at 9:00 last night and woke up at 5:00 this morning feeling drunk. Patient rarely drinks and then drink recently. She called a friend and then called EMS. Patient denies any fever, chills, pain, shortness breath, chest pain, nausea, vomiting, headache. She did have 4 loose bowel movements yesterday but no bowel movement today. She denies any hematochezia or melena. When patient arrived in the emergency room she was mildly hypoxic with the oxygen saturation initially at 92%. Recheck showed her to be down to 85%. Patient states that often she is told at the clinic to take deep breaths because she has low oxygenation. She does have a history of smoking and stopped 11 years ago. She smoked between the ages of 19 and 58 off and on up to a pack per day. She has no history of lung disease. She denies any cough, productive sputum, or shortness of breath. She stated yesterday she had some difficulty swallowing which has resolved. In the emergency room a CT of her head, EKG, and chest x-ray were performed. All were normal. Labs included a white count that was slightly elevated at 14.55 , sodium of 133, glucose 120, AST 70, ALT 96, negative troponin, and negative UA for UTI. Patient was given 1 g IV of Solu-Medrol. Dr. Greco in neurology from [facility] in [place] was called by the emergency room physician. Dr. Greco was not convinced that this is an MS exacerbation. It was felt that we would keep her secondary to her weakness and continue her on Solu- Medrol. She is insulin-dependent diabetic. Diagnosis: Stroke: No - Discharge Data Discharge Date: 07/01/19 Discharge Disposition: Home, Self-Care 01 Condition: Good - Referral to Home Health Primary Care Physician: Nancy Lubin NP - Patient Summary/Data Consults: Consultations 06/29/19 12:54 OT Evaluation and Treatment [CONS] Routine PT Evaluation and Treatment [CONS] Routine Hospital Course: Patient was admitted and started on 1 g of Solu-Medrol daily. Physical therapy and occupational therapy were consulted. Patient was strong enough on day 3 to go home with a front-wheeled walker. She will be discharged on 2 more days of IV Solu-Medrol. - Patient Instructions Diet: Diabetic Diet Activity: As Tolerated Driving: Do Not Drive Showering/Bathing: May Shower Other/Special Instructions: Follow up with PCP and neurologist. - Discharge Plan *PRESCRIPTION DRUG MONITORING PROGRAM REVIEWED*: No *COPY OF PRESCRIPTION DRUG MONITORING REPORT IN PATIENT KIANA: No Prescriptions/Med Rec: methylPREDNISolone Sod Succ [Solu-MEDROL] 1,000 mg IV DAILY 2 Days #2 sdv Home Medications: Home Meds ARIPiprazole [Abilify] 20 mg PO BEDTIME 07/19/18 [History] Gabapentin [Neurontin] 600 mg PO QID 07/19/18 [History] Multivitamin [Multivitamins] 1 cap PO DAILY 07/19/18 [History] Omeprazole 40 mg PO DAILY 07/19/18 [History] Ramipril [Altace] 5 mg PO DAILY 07/19/18 [History] SitaGLIPtin [Januvia] 100 mg PO DAILY 07/19/18 [History] Sulfamethoxazole/Trimethoprim [Sulfamethoxazole-Tmp Ss Tablet] 1 tab PO BEDTIME 07/19/18 [History] Teriflunomide [Aubagio] 14 mg PO DAILY 07/19/18 [History] Venlafaxine HCl [Venlafaxine ER] 150 mg PO DAILY 07/19/18 [History] atorvaSTATin [Lipitor] 20 mg PO DAILY 07/19/18 [History] busPIRone [Buspar] 30 mg PO BID 07/19/18 [History] tiZANidine [Zanaflex] 4 mg PO DAILY 07/19/18 [History] traZODone HCl [Trazodone HCl] 50 mg PO BEDTIME 07/19/18 [History] Baclofen 10 mg PO TID 06/29/19 [History] Cholecalciferol (Vitamin D3) [Vitamin D3] 2,000 unit PO DAILY 06/29/19 [History] Insulin Aspart [NovoLOG] 8 units SUBCUT TIDMEALS 06/29/19 [History] Insulin Degludec [Tresiba] 65 units SUBCUT DAILY 06/29/19 [History] Oxybutynin [Oxybutynin ER] 10 mg PO DAILY 06/29/19 [History] Solifenacin Succinate [Vesicare] 10 mg PO DAILY 06/29/19 [History] Triamcinolone Acetonide [Triamcinolone Acetonide 0.1% Crm] 1 applic TOP BID PRN 06/29/19 [History] Vitamin B Complex 1 tab PO DAILY 06/29/19 [History] cloNIDine [Catapres] 0.1 mg PO BID 06/29/19 [History] cycloSPORINE [Restasis] 1 drop EYEBOTH BID 06/29/19 [History] traMADol [Ultram] 50 mg PO Q4HR PRN 06/29/19 [History] Insulin Lispro [HumaLOG] 0 unit SUBCUT QIDACANDBED vial 07/01/19 [Rx] methylPREDNISolone Sod Succ [Solu-MEDROL] 1,000 mg IV DAILY 2 Days #2 sdv [Rx] Oxygen Therapy Mode: Room Air Patient Handouts: Peripheral Intravenous Catheter Placement, Adult, Peripheral Intravenous Catheter Placement, Adult, Care After, Multiple Sclerosis Forms: ED Department Discharge Referrals: Nancy Lubin NP [Primary Care Provider] - - Discharge Summary/Plan Comment DC Time >30 min.: Yes Discharge Summary/Plan Comment: Discharge home in good condition. Solu-Medrol 1 g IV at the infusion center at [facility]. Follow-up with the neurologist and primary care provider. - General Info Date of Service: 07/01/19 Admission Dx/Problem (Free Text: Admission Diagnosis/Problem Admission Diagnosis/Problem Multiple sclerosis Subjective Update: Patient is doing much better and states that she is strong enough to go home. - Review of Systems General: Reports: Weakness HEENT: Reports: No Symptoms Pulmonary: Reports: No Symptoms Cardiovascular: Reports: No Symptoms Gastrointestinal: Reports: No Symptoms Musculoskeletal: Reports: No Symptoms Skin: Reports: No Symptoms Neurological: Reports: No Symptoms - Patient Data Vitals - Most Recent: Last Vital Signs Temp 99.1 F 07/01/19 08:45 Pulse 90 07/01/19 08:45 Resp 18 07/01/19 08:45 BP 111/89 07/01/19 08:53 Pulse Ox 93 L 07/01/19 08:45 Weight - Most Recent: 184 lb I&O - Last 24 hours: Intake & Output 06/30/19 07/01/19 07/01/19 22:59 06:59 14:59 Intake Total 1390 300 240 Output Total 1650 Balance 1390 -1350 240 Lab Results - Last 24 hrs: Laboratory Results - last 24 hr 07/01/19 07/01/19 07/01/19 Range/Units 05:19 05:19 11:47 WBC 16.37 H (3.98-10.04) K/mm3 RBC 4.51 (3.98-5.22) M/mm3 Hgb 13.7 (11.2-15.7) gm/dl Hct 41.7 (34.1-44.9) % MCV 92.5 (79.4-94.8) fl MCH 30.4 (25.6-32.2) pg MCHC 32.9 (32.2-35.5) g/dl RDW Std Deviation 49.7 H (36.4-46.3) fL Plt Count 185 (182-369) K/mm3 MPV 11.7 (9.4-12.3) fl Neut % (Auto) 86.3 H (34.0-71.1) % Lymph % (Auto) 6.7 L (19.3-51.7) % [place] % (Auto) 6.7 (4.7-12.5) % Eos % (Auto) 0 L (0.7-5.8) Baso % (Auto) 0.0 L (0.1-1.2) % Neut # (Auto) 14.14 H (1.56-6.13) K/mm3 Lymph # (Auto) 1.09 L (1.18-3.74) K/mm3 [place] # (Auto) 1.09 H (0.24-0.36) K/mm3 Eos # (Auto) 0.00 L (0.04-0.36) K/mm3 Baso # (Auto) 0.00 L (0.01-0.08) K/mm3 Manual Slide Review Abnormal smear Sodium 138 (136-145) mEq/L Potassium 4.2 (3.5-5.1) mEq/L Chloride 102 (98-107) mEq/L Carbon Dioxide 28 (21-32) mEq/L Anion Gap 12.2 (5-15) BUN 21 H (7-18) mg/dL Creatinine 0.6 (0.55-1.02) mg/dL Est Cr Clr Drug Dosing 70.98 mL/min Estimated GFR (MDRD) > 60 (>60) mL/min BUN/Creatinine Ratio 35.0 H (14-18) Glucose 110 (80-115) mg/dL POC Glucose 117 H (80-115) mg/dL Calcium 8.9 (8.5-10.1) mg/dL Magnesium 1.9 (1.8-2.4) mg/dl Total Bilirubin 0.4 (0.2-1.0) mg/dL AST 20 (15-37) U/L ALT 50 (14-59) U/L Alkaline Phosphatase 66 (46-116) U/L Total Protein 6.3 L (6.4-8.2) g/dl Albumin 2.9 L (3.4-5.0) g/dl Globulin 3.4 gm/dL Albumin/Globulin Ratio 0.9 L (1-2) Med Orders - Current: Current Medications Acetaminophen (Tylenol) 650 mg PO Q4H PRN PRN Reason: Pain (Mild 1-3)/fever Albuterol/Ipratropium (Duoneb 3.0-0.5 Mg/3 Ml) 3 ml NEB Q4HRRT PRN PRN Reason: Hypoxia Alogliptin Benzoate (Alogliptin) 25 mg PO DAILY [facility] Last Admin: 07/01/19 08:54 Dose: 25 mg Aripiprazole (Abilify) 20 mg PO BEDTIME [facility] Last Admin: 06/30/19 20:59 Dose: 20 mg Baclofen (Lioresal) 10 mg PO TID [facility] Last Admin: 07/01/19 08:55 Dose: 10 mg Buspirone HCl (Buspar) 30 mg PO BID [facility] Last Admin: 07/01/19 09:18 Dose: 15 mg Cholecalciferol (Vitamin D3) 50 mcg PO DAILY [facility] Last Admin: 07/01/19 08:53 Dose: 50 mcg Clonidine HCl (Catapres) 0.1 mg PO BID [facility] Last Admin: 07/01/19 09:14 Dose: Not Given Enoxaparin Sodium (Lovenox) 40 mg SUBCUT DAILY [facility] Last Admin: 07/01/19 08:56 Dose: 40 mg Gabapentin (Neurontin) 600 mg PO QID [facility] Last Admin: 07/01/19 08:54 Dose: 600 mg Insulin Glargine (Lantus) 65 unit SUBCUT DAILY [facility] Last Admin: 07/01/19 08:55 Dose: 65 units Insulin Human Lispro (Humalog) 8 unit SUBCUT TIDMEALS [facility] Last Admin: 07/01/19 12:08 Dose: 8 units Insulin Human Lispro (Humalog) 0 unit SUBCUT QIDACANDBED [facility]; Protocol Last Admin: 07/01/19 12:08 Dose: Not Given Lisinopril (Prinivil) 10 mg PO DAILY [facility] Last Admin: 07/01/19 08:53 Dose: 10 mg Multivitamins (Thera) 1 each PO DAILY [facility] Last Admin: 07/01/19 09:19 Dose: Not Given Restasis Eye Drops * (*Own Med) 0 drop EYEBOTH BID [facility] Last Admin: 07/01/19 09:19 Dose: 1 drop Teriflunomide 14 Mg (Tabs Own Med) 0 mg PO DAILY [facility] Last Admin: 07/01/19 09:19 Dose: 14 mg Ondansetron HCl (Zofran) 4 mg IV Q4H PRN PRN Reason: Nausea/Vomiting Oxybutynin Chloride (Oxybutynin Er) 10 mg PO DAILY [facility] Last Admin: 07/01/19 08:53 Dose: 10 mg Pantoprazole Sodium (Protonix) 40 mg PO DAILY@0700 [facility] Last Admin: 07/01/19 06:13 Dose: 40 mg Simvastatin (Zocor) 20 mg PO BEDTIME [facility] Last Admin: 06/30/19 21:03 Dose: 20 mg Sodium Chloride (Saline Flush) 10 ml FLUSH ASDIRECTED PRN PRN Reason: Keep Vein Open Last Admin: 06/29/19 07:59 Dose: 10 ml Tizanidine HCl (Zanaflex) 4 mg PO DAILY [facility] Last Admin: 07/01/19 08:55 Dose: 4 mg Tramadol HCl (Ultram) 50 mg PO Q4HR PRN PRN Reason: Pain Trazodone HCl (Trazodone) 50 mg PO BEDTIME [facility] Last Admin: 06/30/19 21:01 Dose: 50 mg Triamcinolone Acetonide (Triamcinolone Acetonide 0.1% Crm) 0 gm TOP BID PRN PRN Reason: eczema Trimethoprim/Sulfamethoxazole (Septra Ds) 1 tab PO BEDTIME [facility] Last Admin: 06/30/19 21:00 Dose: 1 tab Trospium (Sanctura) 20 mg PO BID [facility] Last Admin: 07/01/19 08:53 Dose: 20 mg Venlafaxine HCl (Effexor Xr) 150 mg PO DAILY [facility] Last Admin: 07/01/19 08:54 Dose: 150 mg Vitamin B Complex/Vitamin C (Super B With Vitamin C) 1 cap PO DAILY [facility] Last Admin: 07/01/19 09:19 Dose: Not Given Discontinued Medications Gadobenate Dimeglumine (Multihance) 17 ml IVPUSH ONETIME ONE Stop: 07/01/19 10:37 Last Admin: 07/01/19 12:10 Dose: 17 ml Methylprednisolone Sodium Succinate 1,000 mg/ Sodium Chloride 258 mls @ 258 mls /hr IV ONETIME ONE Stop: 06/29/19 07:13 Last Admin: 06/29/19 07:47 Dose: 258 mls/hr Methylprednisolone Sodium Succinate 1,000 mg/ Sodium Chloride 258 mls @ 258 mls /hr IV DAILY [facility] Stop: 07/01/19 09:59 Last Admin: 07/01/19 08:53 Dose: 258 mls/hr Magnesium Hydroxide (Milk Of Magnesia) 30 ml PO ONETIME ONE Stop: 07/01/19 06:01 Last Admin: 07/01/19 06:13 Dose: 30 ml Methylprednisolone Sodium Succinate (Solu-Medrol) 1,000 mg IVPUSH DAILY [facility] Stop: 07/01/19 09:01 Sodium Chloride (Saline Flush) 10 ml FLUSH ASDIRECTED [facility] Stop: 07/01/19 12:00 - Exam General: Reports: Alert, Oriented HEENT: Reports: Pupils Equal, Mucous Membr. Moist/Rake Neck: Reports: Supple Lungs: Reports: Clear to Auscultation, Normal Respiratory Effort Cardiovascular: Reports: Regular Rate, Regular Rhythm GI/Abdominal Exam: Normal Bowel Sounds, Soft, Non-Tender, No Organomegaly, No Distention, No Abnormal Bruit, No Mass, Pelvis Stable Extremities: Normal Inspection, Normal Range of Motion, Non-Tender, No Pedal Edema, Normal Capillary Refill Skin: Reports: Warm, Dry, Intact Neurological: Reports: No New Focal Deficit, Strength Equal Bilateral
[2019-07-01 14:23] VITALS: BP 133/59; PULSE 84
== END 2019-07-01 14:02 | disposition home or self-care (01) | DRG 60 ==
LOC: JD.ED 06:39 → JD.MS 10:19 → OBSVTOIN 13:03
PROVIDERS: ADMIT Family Medicine; ATTEND Family Medicine
DX: G35 Multiple sclerosis (principal); R53.1 Weakness; E11.9 Type 2 diabetes mellitus without complications; I10 Essential (primary) hypertension; K21.9 Gastro-esophageal reflux disease without esophagitis; R32 Unspecified urinary incontinence; M16.12 Unilateral primary osteoarthritis, left hip; F41.9 Anxiety disorder, unspecified; F32.9 Major depressive disorder, single episode, unspecified; E66.9 Obesity, unspecified; R09.02 Hypoxemia; E78.5 Hyperlipidemia, unspecified; Z88.8 Allergy status to other drugs, medicaments and biological substances; Z88.6 Allergy status to analgesic agent; Z88.5 Allergy status to narcotic agent; Z88.0 Allergy status to penicillin; Z79.4 Long term (current) use of insulin; Z87.891 Personal history of nicotine dependence; Z90.710 Acquired absence of both cervix and uterus; Z90.49 Acquired absence of other specified parts of digestive tract; Z68.33 Body mass index [BMI] 33.0-33.9, adult; Z79.899 Other long term (current) drug therapy
CPT/HCPCS: 36415; 70450; 71045; 80053; 81001; 84484; 85025; 93005; 96365; 99285; J2930; J7050; 70553; 70553-26; 82962; 83735; 93010; 94760; 97110-GP; 97161-GP; 97165-GO; 97530-GO; 99284; A9270-GY; A9577; J1650; J1815-GY

== ENCOUNTER 2020-04-03 12:46 | Emergency (ER) | payer MEDICARE, MEDICAID ==
[2020-04-03] MEDS ORDERED: Lactated Ringers 1,000 ML IV ONE (13:19)
--- NOTE | 2020-04-03 13:19 | EDM.PDOC ---
ED HPI GENERAL MEDICAL PROBLEM - General Chief Complaint: General Stated Complaint: [facility] Time Seen by Provider: 04/03/20 13:04 - History of Present Illness INITIAL COMMENTS - FREE TEXT/NARRATIVE: 69-year-old female brought in by EMS after falling last night being down most the night and was not found until about noon today. Patient has longstanding MS. Yesterday she started feeling weak. And she went to the bathroom could not hold herself up and fell landing on both knees then her left hip and hit her head. Patient also has right-sided foot and lower leg pain as well as significant knee pain. Patient denies any chest pain chest pressure breathing difficulties or shortness of breath. She is not had any nausea vomiting or abdominal pain. Patient denies tripping over anything she just could not hold herself up anymore. Her weakness is on the left side more so than the right and this is a typical pattern for her. Patient denies any other symptoms associated with this most unfortunate mishap. Treatments CORSET MAKER: Reports: Other (see below) Other Treatments CORSET MAKER: was not using her walker Right Ankle Pain Score (Numeric/FACES): 4 - Related Data Allergies Allergy/AdvReac Type Severity Reaction Status Date / Time acetaminophen [From Percocet] Allergy Cannot Verified 06/29/19 06:47 Remember butorphanol [From Stadol] Allergy Cannot Verified 06/29/19 06:47 Remember codeine Allergy Itching Verified 10/31/19 08:06 cyclobenzaprine Allergy Diarrhea Verified 10/31/19 08:07 glatiramer (copolymer 1) Allergy Cannot Verified 06/29/19 06:47 [From Copaxone] Remember interferon beta-1a Allergy Cannot Verified 06/29/19 06:47 [From Avonex] Remember morphine Allergy Itching Verified 06/29/19 06:47 oxycodone [From Percocet] Allergy Cannot Verified 06/29/19 06:47 Remember Penicillins Allergy Hives Verified 06/29/19 06:47 promethazine [From Phenergan] Allergy Cannot Verified 06/29/19 06:47 Remember Home Meds: Home Meds ARIPiprazole [Abilify] 20 mg PO BEDTIME 07/19/18 [History] Gabapentin [Neurontin] 600 mg PO QID 07/19/18 [History] Multivitamin [Multivitamins] 1 cap PO DAILY 07/19/18 [History] Omeprazole 40 mg PO DAILY 07/19/18 [History] SitaGLIPtin [Januvia] 100 mg PO DAILY 07/19/18 [History] Sulfamethoxazole/Trimethoprim [Sulfamethoxazole-Tmp Ss Tablet] 1 tab PO BEDTIME 07/19/18 [History] Teriflunomide [Aubagio] 14 mg PO DAILY 07/19/18 [History] Venlafaxine HCl [Venlafaxine ER] 150 mg PO DAILY 07/19/18 [History] busPIRone [Buspar] 15 mg PO BID 07/19/18 [History] ramipriL [Altace] 5 mg PO DAILY 07/19/18 [History] tiZANidine [Zanaflex] 4 mg PO ASDIRECTED 07/19/18 [History] traZODone HCl [Trazodone HCl] 50 mg PO BEDTIME 07/19/18 [History] Cholecalciferol (Vitamin D3) [Vitamin D3] 2,000 unit PO DAILY 06/29/19 [History] Insulin Degludec [Tresiba] 64 units SUBCUT DAILY 06/29/19 [History] cloNIDine [Catapres] 0.1 mg PO BID 06/29/19 [History] cycloSPORINE [Restasis] 1 drop EYEBOTH BID 06/29/19 [History] traMADol [Ultram] 50 mg PO Q4HR PRN 06/29/19 [History] Insulin Lispro [HumaLOG] 0 unit SUBCUT QIDACANDBED vial 07/01/19 [Rx] Calcium Carbonate 600 mg PO DAILY 04/03/20 [History] Cyanocobalamin (Vitamin B-12) [Vitamin B-12] 100 mcg PO DAILY 04/03/20 [History] Fesoterodine Fumarate [Toviaz] 8 mg PO DAILY 04/03/20 [History] Loratadine [Claritin] 10 mg PO DAILY 04/03/20 [History] Magnesium Oxide 400 mg PO TID 04/03/20 [History] Naproxen 500 mg PO TID 04/03/20 [History] Past Medical History HEENT History: Reports: Cataract, Other (See Below) Other HEENT History: glasses Cardiovascular History: Reports: Hypertension Gastrointestinal History: Reports: GERD, Irritable Bowel Syndrome, Other (See Below) Other Gastrointestinal History: partial bowel obstruction with sx around 1991 Genitourinary History: Reports: Urinary Incontinence, Other (See Below) Other Genitourinary History: self cath's, bladder lift BODY SHOP TECHNICIAN History: Reports: , Other (See Below) Other BODY SHOP TECHNICIAN History: hysterectomy Musculoskeletal History: Reports: Arthritis, Other (See Below) Other Musculoskeletal History: MS, left hip replacement, back sx-laminectomy Neurological History: Reports: MS Psychiatric History: Reports: Anxiety, Depression Endocrine/Metabolic History: Reports: Diabetes, Type II, Obesity/BMI 30+ Dermatologic History: Reports: Eczema - Infectious Disease History Infectious Disease History: Reports: Shingles - Past Surgical History HEENT Surgical History: Reports: Adenoidectomy, Tonsillectomy GI Surgical History: Reports: Cholecystectomy - History Comment History Comment: Requesting oral anxiolytic Social & Family History - Family History Family Medical History: Noncontributory - Tobacco Use Smoking Status *Q: Never Smoker - Caffeine Use Caffeine Use: Reports: Soda - Recreational Drug Use Recreational Drug Use: No ED ROS GENERAL - Review of Systems Review Of Systems: See Below Constitutional: Reports: No Symptoms HEENT: Reports: No Symptoms Respiratory: Reports: No Symptoms Cardiovascular: Reports: No Symptoms Endocrine: Reports: Fatigue GI/Abdominal: Reports: No Symptoms : Reports: No Symptoms Musculoskeletal: Reports: No Symptoms Skin: Reports: No Symptoms Neurological: Reports: Headache, Difficulty Walking, Weakness Psychiatric: Reports: No Symptoms Hematologic/Lymphatic: Reports: No Symptoms Immunologic: Reports: No Symptoms ED EXAM, GENERAL - Physical Exam Exam: See Below Exam Limited By: No Limitations General Appearance: Alert, No Apparent Distress Ears: Normal External Exam, Normal Canal, Normal TMs Nose: Normal Inspection, Normal Mucosa, No Blood Throat/Mouth: Normal Inspection, Normal Lips, Normal Gums, Normal Oropharynx, Normal Voice, No Airway Compromise Head: Atraumatic, Normocephalic Neck: Normal Inspection, Supple, Non-Tender, Full Range of Motion. No: Lymphadenopathy (L), Lymphadenopathy (R) Respiratory/Chest: No Respiratory Distress, Lungs Clear, Normal Breath Sounds Cardiovascular: Regular Rate, Rhythm, No Murmur, No Rub GI/Abdominal: Normal Bowel Sounds, Soft, Non-Tender Back Exam: Normal Inspection. No: CVA Tenderness (L), CVA Tenderness (R) Extremities: Normal Inspection, No Pedal Edema Neurological: Alert, Oriented, Normal Cognition Psychiatric: Normal Affect, Normal Mood Skin Exam: Warm, Dry, Intact, Normal Color Lymphatic: No Adenopathy ED GENERAL MEDICAL PROCEDURES - Splinting Right Lower Extremity Splint Site: Right lower leg Pre-procedure NV status: Normal Post-procedure NV status: Normal Splint Type: Custom Splint Material: Fiberglass Splint Design: Posterior Applied & Form Fitted By: Provider Provider Post-Splint Application NV Check: NV Status Normal Complications: No Progress/Comments: Patient had a posterior splint applied to the right lower leg indications were distal fibular fracture mildly displaced. No complications neurovascular status entirely normal after the splint was applied and this was rechecked approximately 20 minutes later. Course - Vital Signs Last Recorded V/S: Last Vital Signs Temp 36.1 C 04/03/20 12:52 Pulse 116 H 04/03/20 12:52 Resp 12 04/03/20 12:52 BP 168/81 H 04/03/20 12:52 Pulse Ox 90 L 04/03/20 12:52 - Orders/Labs/Meds Orders: Active Orders 24 hr Category Date Time Status EKG Documentation Completion [RC] STAT Care 04/03/20 13:21 Active MYOGLOBIN, URINE Stat Lab 04/03/20 13:29 Ordered Lactated Ringers [Ringers, Lactated] 1,000 ml Med 04/03/20 14:15 Active IV ASDIRECTED Medication Orders Lactated Ringer's (Ringers, Lactated) 1,000 mls @ 125 mls/hr IV ASDIRECTED KAREN Labs: Laboratory Tests 04/03/20 04/03/20 04/03/20 Range/Units 13:00 13:00 14:04 WBC 12.13 H (3.98-10.04) K/mm3 RBC 4.64 (3.98-5.22) M/mm3 Hgb 10.0 L D (11.2-15.7) gm/dl Hct 34.4 (34.1-44.9) % MCV 74.1 L D (79.4-94.8) fl MCH 21.6 L (25.6-32.2) pg MCHC 29.1 L (32.2-35.5) g/dl RDW Std Deviation 50.8 H (36.4-46.3) fL Plt Count 227 (182-369) K/mm3 MPV 11.5 (9.4-12.3) fl Neut % (Auto) 84.8 H (34.0-71.1) % Lymph % (Auto) 6.0 L (19.3-51.7) % Ector % (Auto) 8.4 (4.7-12.5) % Eos % (Auto) 0.4 L (0.7-5.8) Baso % (Auto) 0.2 (0.1-1.2) % Neut # (Auto) 10.28 H (1.56-6.13) K/mm3 Lymph # (Auto) 0.73 L (1.18-3.74) K/mm3 Ector # (Auto) 1.02 H (0.24-0.36) K/mm3 Eos # (Auto) 0.05 (0.04-0.36) K/mm3 Baso # (Auto) 0.02 (0.01-0.08) K/mm3 Manual Slide Review Abnormal smear Sodium 142 (136-145) mEq/L Potassium 4.2 (3.5-5.1) mEq/L Chloride 105 (98-107) mEq/L Carbon Dioxide 29 (21-32) mEq/L Anion Gap 12.2 (5-15) BUN 10 (7-18) mg/dL Creatinine 0.7 (0.55-1.02) mg/dL Est Cr Clr Drug Dosing 60.84 mL/min Estimated GFR (MDRD) > 60 (>60) mL/min BUN/Creatinine Ratio 14.3 (14-18) Glucose 163 H (80-115) mg/dL Lactic Acid 1.3 (0.4-2.0) mmol/L Calcium 8.6 (8.5-10.1) mg/dL Total Bilirubin 0.4 (0.2-1.0) mg/dL AST 19 (15-37) U/L ALT 36 (14-59) U/L Alkaline Phosphatase 82 (46-116) U/L Creatine Kinase 126 (26-192) U/L Troponin I 0.088 H* (0.00-0.056) ng/mL Total Protein 6.8 (6.4-8.2) g/dl Albumin 3.5 (3.4-5.0) g/dl Globulin 3.3 gm/dL Albumin/Globulin Ratio 1.1 (1-2) Urine Color (Yellow) Urine Appearance (Clear) Urine pH (5.0-8.0) Ur Specific [place] (1.005-1.030) Urine Protein (Negative) Urine Glucose (UA) (Negative) Urine Ketones (Negative) Urine Occult Blood (Negative) Urine Nitrite (Negative) Urine Bilirubin (Negative) Urine Urobilinogen (0.2-1.0) Ur Leukocyte Esterase (Negative) Urine RBC (0-5) /hpf Urine WBC (0-5) /hpf Ur Squamous Epith Cells (0-5) /hpf Amorphous Sediment (NOT SEEN) /hpf Urine Bacteria (FEW) /hpf Urine Mucus (FEW) /hpf 04/03/20 Range/Units 14:20 WBC (3.98-10.04) K/mm3 RBC (3.98-5.22) M/mm3 Hgb (11.2-15.7) gm/dl Hct (34.1-44.9) % MCV (79.4-94.8) fl MCH (25.6-32.2) pg MCHC (32.2-35.5) g/dl RDW Std Deviation (36.4-46.3) fL Plt Count (182-369) K/mm3 MPV (9.4-12.3) fl Neut % (Auto) (34.0-71.1) % Lymph % (Auto) (19.3-51.7) % Ector % (Auto) (4.7-12.5) % Eos % (Auto) (0.7-5.8) Baso % (Auto) (0.1-1.2) % Neut # (Auto) (1.56-6.13) K/mm3 Lymph # (Auto) (1.18-3.74) K/mm3 Ector # (Auto) (0.24-0.36) K/mm3 Eos # (Auto) (0.04-0.36) K/mm3 Baso # (Auto) (0.01-0.08) K/mm3 Manual Slide Review Sodium (136-145) mEq/L Potassium (3.5-5.1) mEq/L Chloride (98-107) mEq/L Carbon Dioxide (21-32) mEq/L Anion Gap (5-15) BUN (7-18) mg/dL Creatinine (0.55-1.02) mg/dL Est Cr Clr Drug Dosing mL/min Estimated GFR (MDRD) (>60) mL/min BUN/Creatinine Ratio (14-18) Glucose (80-115) mg/dL Lactic Acid (0.4-2.0) mmol/L Calcium (8.5-10.1) mg/dL Total Bilirubin (0.2-1.0) mg/dL AST (15-37) U/L ALT (14-59) U/L Alkaline Phosphatase (46-116) U/L Creatine Kinase (26-192) U/L Troponin I (0.00-0.056) ng/mL Total Protein (6.4-8.2) g/dl Albumin (3.4-5.0) g/dl Globulin gm/dL Albumin/Globulin Ratio (1-2) Urine Color Yellow (Yellow) Urine Appearance Clear (Clear) Urine pH 7.0 (5.0-8.0) Ur Specific [place] 1.020 (1.005-1.030) Urine Protein Trace H (Negative) Urine Glucose (UA) Negative (Negative) Urine Ketones Negative (Negative) Urine Occult Blood Negative (Negative) Urine Nitrite Negative (Negative) Urine Bilirubin Negative (Negative) Urine Urobilinogen 0.2 (0.2-1.0) Ur Leukocyte Esterase Negative (Negative) Urine RBC 0-5 (0-5) /hpf Urine WBC 0-5 (0-5) /hpf Ur Squamous Epith Cells 0-5 (0-5) /hpf Amorphous Sediment Rare H (NOT SEEN) /hpf Urine Bacteria Many H (FEW) /hpf Urine Mucus Not seen (FEW) /hpf Meds: Medications Generic Name Dose Route Start Last Admin Trade Name Freq PRN Reason Stop Dose Admin Lactated Ringer's 1,000 mls @ 125 mls/hr 04/03/20 14:15 Ringers, Lactated IV ASDIRECTED KAREN Discontinued Medications Generic Name Dose Route Start Last Admin Trade Name Freq PRN Reason Stop Dose Admin Hydromorphone HCl 0.5 mg 04/03/20 15:17 04/03/20 15:23 Dilaudid IVPUSH 04/03/20 15:18 0.5 mg ONETIME ONE Administration Hydromorphone HCl Confirm 04/03/20 15:19 04/03/20 15:23 Dilaudid Administered 04/03/20 15:20 Not Given Dose 0.5 mg .ROUTE .STK-MED ONE Lactated Ringer's 1,000 mls @ 999 mls/hr 04/03/20 13:19 04/03/20 13:52 Ringers, Lactated IV 04/03/20 14:19 999 mls/hr .BOLUS ONE Administration Methylprednisolone Sodium 258 mls @ 258 mls/hr 04/03/20 14:13 04/03/20 15:01 Succinate 1,000 mg/ Sodium IV 04/03/20 14:14 258 mls/hr Chloride ONETIME ONE Administration - Re-Assessments/Exams Free Text/Narrative Re-Assessment/Exam: 04/03/20 13:48 The case was discussed with Dr. Arnold the neurologist on-call at [facility] in [place]. He does recommend Solu-Medrol 1 g for the next 5 days and to get an MRI with and without contrast of the brain. We certainly can wait till Monday to do this. 04/03/20 15:24 I have not accepting physician he accepted at approximately 1510 at [facility] in [place]. Dr. Santillan, hospitalist at [facility] was kind enough to accept the position the fibular fracture, MS flare, the need for a brain MRI with and without contrast, and the minimally elevated troponin was discussed with him. Also the patient has not had any of her daily medications however her blood sugar is reasonable and her vital signs are stable she is tachycardic but this appears to be a chronic problem for her. The patient will be transferred on maintenance fluids. Pain medications as needed. Departure - Departure Time of Disposition: 15:10 Disposition: DC/Tfer to Acute Hospital 02 Clinical Impression: Exacerbation of multiple sclerosis, Closed fracture of right distal fibula, Elevated troponin - Discharge Information Referrals: Nancy Lubin NP [Primary Care Provider] - Forms: ED Department Discharge Sepsis Event Note (ED) - Evaluation Sepsis Screening Result: No Definite Risk - Focused Exam Vital Signs: Vital Signs Temp Pulse Resp BP Pulse Ox 04/03/20 12:52 36.1 C 116 H 12 168/81 H 90 L - My Orders Last 24 Hours: My Active Orders 04/03/20 13:21 EKG Documentation Completion [RC] STAT 04/03/20 13:29 MYOGLOBIN, URINE Stat 04/03/20 14:15 Lactated Ringers [Ringers, Lactated] 1,000 ml IV ASDIRECTED - Assessment/Plan Last 24 Hours: My Active Orders 04/03/20 13:21 EKG Documentation Completion [RC] STAT 04/03/20 13:29 MYOGLOBIN, URINE Stat 04/03/20 14:15 Lactated Ringers [Ringers, Lactated] 1,000 ml IV ASDIRECTED
--- NOTE | 2020-04-03 13:43 | CR ---
Chest: Portable view of the chest was obtained. Comparison: Prior portable chest x-ray of 06/29/19. Heart has a mild left ventricular configuration. Mild tortuosity of the thoracic aorta is seen. Lungs are clear with no acute parenchymal. Bony structures are grossly intact. Impression: 1. Nothing acute is appreciated on portable chest x-ray. Diagnostic code #2 This report was dictated in MDT
--- NOTE | 2020-04-03 14:01 | CT ---
Head CT Technique: Multiple axial sections through the brain were obtained. Comparison: Prior head CT study of 06/29/19. Findings: Ventricles along with basal cisterns and sulci over the convexities are within normal limits for the patient's age. Focal low density area is noted within the right parietal white matter which appears stable from prior exam presumably due to old white matter infarct. No other abnormal parenchymal densities are seen. No evidence of intracranial hemorrhage. No midline shift or mass-effect is seen. Bone window settings were reviewed. Visualize paranasal sinuses shows minimal mucosal thickening within the left side of the sphenoid sinus. No acute finding is seen within the visualized mastoid sinuses. No acute calvarial abnormality is appreciated. Impression: 1. 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 2. Nothing acute is appreciated on noncontrast head CT study. Diagnostic code #2 This report was dictated in MDT
--- NOTE | 2020-04-03 14:05 | CR ---
Right foot: 4 views of the right foot were obtained. Comparison: No prior foot exam. Plantar spur is seen. Calcification is noted within the distal Achilles tendon at its attachment to the calcaneus. Mild degenerative change is noted within the mid foot. Bunion deformity is seen. Distal fibular fracture is noted. No fracture is noted within the foot Impression: 1. Fibular fracture. 2. Other findings as noted above which are nonacute. 3. No fracture is seen within the foot. Diagnostic code #3 This report was dictated in MDT
--- NOTE | 2020-04-03 14:06 | CR ---
Pelvis and left hip: AP view of the pelvis was obtained as well as AP and frog-leg lateral views of the left hip. Comparison: No prior pelvis or left hip exam is available. Left hip prosthesis is seen. Mild joint space narrowing is seen superiorly with the right hip. Degenerative cyst is noted within the superior right acetabulum. Previous laminectomy is noted within the lower lumbar spine. Bony structures are osteopenic. No acute fracture or other bony abnormality is appreciated. Impression: 1. Left hip prosthesis. Prior lumbar spine surgery. Degenerative change within the right hip. 2. Nothing acute is appreciated on AP pelvis or on 2 view left hip exam. Diagnostic code #2 This report was dictated in MDT
--- NOTE | 2020-04-03 14:07 | CR ---
Right knee: AP, lateral and sunrise patellar views of the right knee were obtained. Small osteophytes are noted off the medial joint. Minimal osteophyte is noted off the patella. No acute fracture, dislocation or other bony abnormality is seen. Spur is noted at the attachment of the quadriceps tendon to the patella. No joint effusion is seen. Impression: 1. Minimal degenerative change. 2. Nothing acute is appreciated on three-view right knee exam. Diagnostic code #2 This report was dictated in MDT
--- NOTE | 2020-04-03 14:09 | CR ---
Right tibia and fibula: 2 views of the right tibia and fibula were obtained. Comparison: No prior tibia or fibula study is available. Distal fibular fracture is seen which is oblique in alignment. Minimal displacement is seen. Soft tissue swelling is identified. No additional fracture or other bony abnormality is appreciated. Impression: 1. Slightly displaced distal fibular fracture with soft tissue swelling. Diagnostic code #3 This report was dictated in MDT
[2020-04-03] MEDS ORDERED: Lactated Ringers 1,000 ML IV SCH (14:15)
[2020-04-03] MEDS ORDERED: HYDROmorphone 0.5 MG/0.5 ML Syringe IVPUSH ONE (15:17)
[2020-04-03] MEDS ORDERED: HYDROmorphone 0.5 MG/0.5 ML Syringe ONE (15:19)
[2020-04-03 16:05] VITALS: BP 148/75; PULSE 115
== END 2020-04-03 16:05 ==
LOC: SUPCPDRO 12:46 → JD.ED 12:46
DX: S82.831A Other fracture of upper and lower end of right fibula, initial encounter for closed fracture (principal); G35 Multiple sclerosis; R79.89 Other specified abnormal findings of blood chemistry; I10 Essential (primary) hypertension; K21.9 Gastro-esophageal reflux disease without esophagitis; M19.90 Unspecified osteoarthritis, unspecified site; F41.9 Anxiety disorder, unspecified; F32.9 Major depressive disorder, single episode, unspecified; E11.9 Type 2 diabetes mellitus without complications; E66.9 Obesity, unspecified; Z68.34 Body mass index [BMI] 34.0-34.9, adult; Z20.828 Contact with and (suspected) exposure to other viral communicable diseases; Z88.6 Allergy status to analgesic agent; Z88.5 Allergy status to narcotic agent; Z88.8 Allergy status to other drugs, medicaments and biological substances; Z88.0 Allergy status to penicillin; Z79.899 Other long term (current) drug therapy; Z79.4 Long term (current) use of insulin; W19.XXXA Unspecified fall, initial encounter; Y92.002 Bathroom of unspecified non-institutional (private) residence as the place of occurrence of the external cause
CPT/HCPCS: 29515; 36415; 70450; 71045; 73502; 73562; 73590; 73630; 80053; 81001; 82550; 83605; 83874; 84484; 85025; 93005; 96361; 96365; 96375; 99285; J1170; J2930; J7050; J7120; U0002

== ENCOUNTER 2020-08-10 17:40 | Emergency (ER) | payer MEDICARE, MEDICAID ==
[2020-08-10 17:54] VITALS: BP 163/77; PULSE 95
[2020-08-10] MEDS ORDERED: Sodium Chloride 0.9% 10 ML Syringe FLUSH PRN (18:00)
[2020-08-10] MEDS ORDERED: Sodium Chloride 0.9% 1,000 ML IV ONE (18:03)
--- NOTE | 2020-08-10 18:09 | EDM.PDOC ---
ED HPI GENERAL MEDICAL PROBLEM - General Chief Complaint: Back Pain or Injury Stated Complaint: [facility] Time Seen by Provider: 08/10/20 17:49 Source of Information: Reports: Patient, EMS Notes Reviewed, RN Notes Reviewed History Limitations: Reports: No Limitations - History of Present Illness INITIAL COMMENTS - FREE TEXT/NARRATIVE: Patient is a 70-year-old female who presents to the ED via [facility] for the evaluation of a fall at her home. The patient has help that does come in to her house 2 times a day, she usually uses a walker, she states that she is slipped and fell. She did hit her head at this time, is complaining of a mild headache. Patient seems to be alert, oriented to name and place only. Were not sure if this is a marked change from her baseline. But the patient does seem to be somewhat confused she could not tell me what month it was. She is also complaining of low back pain, into her buttocks, and tailbone. Patient has a recent history of COVID-19 in June, and states that she was also diagnosed with a bilateral pneumonia. The patient's primary care provider is Nancy Lubin. The patient is afebrile at time of triage 97.9 F, respiratory rate of 16 breaths/min, blood pressure is 163/77, pulse is 95 bpm. O2 sats were found to be slightly low at 88%, she was placed on 2 L nasal cannula which raised them to about 94% at rest. When I asked the patient where she is having pain, she points to her head and her butt. Lower Back Pain Score (Numeric/FACES): 7 - Related Data Allergies Allergy/AdvReac Type Severity Reaction Status Date / Time acetaminophen [From Percocet] Allergy Cannot Verified 08/10/20 17:54 Remember butorphanol [From Stadol] Allergy Cannot Verified 08/10/20 17:54 Remember codeine Allergy Itching Verified 08/10/20 17:54 cyclobenzaprine Allergy Diarrhea Verified 08/10/20 17:54 glatiramer (copolymer 1) Allergy Cannot Verified 08/10/20 17:54 [From Copaxone] Remember interferon beta-1a Allergy Cannot Verified 08/10/20 17:54 [From Avonex] Remember morphine Allergy Itching Verified 08/10/20 17:54 oxycodone [From Percocet] Allergy Cannot Verified 08/10/20 17:54 Remember Penicillins Allergy Hives Verified 08/10/20 17:54 promethazine [From Phenergan] Allergy Cannot Verified 08/10/20 17:54 Remember Home Meds: Home Meds ARIPiprazole [Abilify] 20 mg PO BEDTIME 07/19/18 [History] Gabapentin [Neurontin] 600 mg PO QID 07/19/18 [History] Multivitamin [Multivitamins] 1 cap PO DAILY 07/19/18 [History] Omeprazole 20 mg PO DAILY 07/19/18 [History] SitaGLIPtin [Januvia] 100 mg PO DAILY 07/19/18 [History] Sulfamethoxazole/Trimethoprim [Sulfamethoxazole-Tmp Ss Tablet] 1 tab PO BEDTIME 07/19/18 [History] Teriflunomide [Aubagio] 14 mg PO DAILY 07/19/18 [History] Venlafaxine HCl [Venlafaxine ER] 150 mg PO DAILY 07/19/18 [History] busPIRone [Buspar] 30 mg PO BID 07/19/18 [History] ramipriL [Altace] 5 mg PO DAILY 07/19/18 [History] tiZANidine [Zanaflex] 8 mg PO ASDIRECTED 07/19/18 [History] traZODone HCl [Trazodone HCl] 50 mg PO BEDTIME 07/19/18 [History] Cholecalciferol (Vitamin D3) [Vitamin D3] 2,000 unit PO DAILY 06/29/19 [History] Insulin Degludec [Tresiba] 64 units SUBCUT DAILY 06/29/19 [History] cycloSPORINE [Restasis] 1 drop EYEBOTH BID 06/29/19 [History] traMADol [Ultram] 50 mg PO Q4HR PRN 06/29/19 [History] Calcium Carbonate 600 mg PO DAILY 04/03/20 [History] Naproxen 500 mg PO TID PRN 04/03/20 [History] Baclofen 20 mg PO TID 07/01/20 [History] Butalbit/Acetamin/Caff/Codeine [Fioricet-Cod 30-660-74-30 Cap] 1 each PO BID PRN 07/01/20 [History] Insulin Aspart [NovoLOG] 8 - 15 unit SQ TID 07/01/20 [History] Metoprolol Succinate [Toprol XL] 50 mg PO DAILY 07/01/20 [History] Triamcinolone Acetonide [Kenalog 0.1% Crm] 15 gm .XX BID 07/01/20 [History] Trospium [Sanctura] 20 mg PO BID 07/01/20 [History] atorvaSTATin [Lipitor] 20 mg PO DAILY 07/01/20 [History] oxyCODONE HCl/Acetaminophen [Percocet 5-325 mg Tablet] 1 each PO Q4HR PRN 07/01/20 [History] Furosemide [Lasix] 20 mg PO DAILY 08/10/20 [History] Nystatin 1 each TOP BID 08/10/20 [History] Past Medical History HEENT History: Reports: Cataract, Other (See Below) Other HEENT History: glasses Cardiovascular History: Reports: Hypertension Gastrointestinal History: Reports: GERD, Irritable Bowel Syndrome, Other (See Below) Other Gastrointestinal History: partial bowel obstruction with sx around 1991 Genitourinary History: Reports: Urinary Incontinence, Other (See Below) Other Genitourinary History: self cath's, bladder lift [employer] History: Reports: , Other (See Below) Other [employer] History: hysterectomy Musculoskeletal History: Reports: Arthritis, Other (See Below) Other Musculoskeletal History: MS, left hip replacement, back sx-laminectomy Neurological History: Reports: MS Psychiatric History: Reports: Anxiety, Depression Endocrine/Metabolic History: Reports: Diabetes, Type II, Obesity/BMI 30+ Dermatologic History: Reports: Eczema - Infectious Disease History Infectious Disease History: Reports: Novel Coronavirus (June 2020), Shingles - Past Surgical History HEENT Surgical History: Reports: Adenoidectomy, Tonsillectomy GI Surgical History: Reports: Cholecystectomy Social & Family History - Family History Family Medical History: Noncontributory - Caffeine Use Caffeine Use: Reports: Soda ED ROS GENERAL - Review of Systems Review Of Systems: Comprehensive ROS is negative, except as noted in HPI. ED EXAM,LOWER BACK PAIN/INJURY - Physical Exam Exam: See Below Exam Limited By: No Limitations General Appearance: Alert, WD/WN, No Apparent Distress Eye Exam: Bilateral Eye: EOMI, PERRL Throat/Mouth: Normal Inspection, Normal Lips, Normal Teeth, Normal Gums, Normal Oropharynx, Normal Voice, No Airway Compromise Head: Atraumatic, Normocephalic Neck: Normal Inspection Respiratory/Chest: No Respiratory Distress, Lungs Clear, Normal Breath Sounds, No Accessory Muscle Use, Chest Non-Tender Cardiovascular: Normal Peripheral Pulses, Regular Rate, Rhythm, No Murmur GI/Abdominal: Normal Bowel Sounds, Soft, Non-Tender, No Distention, No Mass Back Exam: Normal Inspection, Full Range of Motion, Other (seems to be some tenderness around the sacrum) Extremities: Normal Inspection, Normal Capillary Refill Neurological: Alert, Normal Mood/Affect, Normal Dorsiflexion, Normal Plantar Flexion Psychiatric: Normal Affect, Normal Mood Skin Exam: Warm, Dry, Intact, Normal Color, No Rash #1 Interpretation EKG Date: 08/10/20 Time: 20:05 Rhythm: Other (sinus tach) Rate (Beats/Min): 108 [place]: Normal P-Wave: Present QRS: Normal ST-T: Depressed (borderline depression in lateral leads) QT: Prolonged (borderline prolonged QTc 500) Course - Vital Signs Last Recorded V/S: Last Vital Signs Temp 97.9 F 08/10/20 17:47 Pulse 95 08/10/20 17:47 Resp 16 08/10/20 17:47 BP 163/77 H 08/10/20 17:47 Pulse Ox 94 L 08/10/20 21:06 - Orders/Labs/Meds Orders: Active Orders 24 hr Category Date Time Status EKG Documentation Completion [RC] STAT Care 08/10/20 19:50 Active Insert Ch[place]m Catheter [Insert Urinary Catheter] [OM.PC] Care 08/10/20 18:18 Ordered Stat Oxygen Therapy, ED [RC] ASDIRECTED Care 08/10/20 18:09 Active RT Aerosol Therapy [RC] ASDIRECTED Care 08/10/20 20:41 Active Urinary Catheter Assessment [RC] ASDIRECTED Care 08/10/20 18:18 Active Chest 1V Frontal [CR] Stat Exams 08/10/20 18:00 Taken Head wo Cont [CT] Stat Exams 08/10/20 18:02 Taken Pelvis 1V or 2V [CR] Stat Exams 08/10/20 18:03 Taken Sacrum Coccyx Min 2V [CR] Stat Exams 08/10/20 18:02 Taken CULTURE BLOOD [BC] Stat Lab 08/10/20 18:28 Received CULTURE BLOOD [BC] Stat Lab 08/10/20 18:49 Received Sodium Chloride 0.9% [Saline Flush] Med 08/10/20 18:00 Active 10 ml FLUSH ASDIRECTED PRN Blood Culture x2 Reflex Set [OM.PC] Stat Oth 08/10/20 18:00 Ordered Saline Lock Insert [OM.PC] Stat Oth 08/10/20 18:00 Ordered EKG 12 Lead [EK] Stat Ther 08/10/20 18:00 Stop Req Medication Orders Sodium Chloride (Saline Flush) 10 ml FLUSH ASDIRECTED PRN PRN Reason: Keep Vein Open Last Admin: 08/10/20 19:00 Dose: 10 ml Documented by: CHARY Labs: Laboratory Tests 08/10/20 08/10/20 08/10/20 Range/Units 17:58 17:58 17:58 WBC 3.71 L (3.98-10.04) K/mm3 RBC 4.71 (3.98-5.22) M/mm3 Hgb 14.1 D (11.2-15.7) gm/dl Hct 43.7 (34.1-44.9) % MCV 92.8 D (79.4-94.8) fl MCH 29.9 (25.6-32.2) pg MCHC 32.3 (32.2-35.5) g/dl RDW Std Deviation 54.0 H (36.4-46.3) fL Plt Count 128 L D (182-369) K/mm3 MPV 10.9 (9.4-12.3) fl Neutrophils % (Manual) 76 H (40-60) % Band Neutrophils % 0 (0-10) % Lymphocytes % (Manual) 10 L (20-40) % Atypical Lymphs % 0 % Monocytes % (Manual) 13 H (2-10) % Eosinophils % (Manual) 0 L (0.7-5.8) % Basophils % (Manual) 1 (0.1-1.2) Platelet Estimate Adequate RBC Morph Comment Normal PT 12.9 H (9.7-12.0) SECONDS INR 1.21 Sodium 138 (136-145) mEq/L Potassium 3.4 L (3.5-5.1) mEq/L Chloride 99 (98-107) mEq/L Carbon Dioxide 30 (21-32) mEq/L Anion Gap 12.4 (5-15) BUN 9 (7-18) mg/dL Creatinine 0.6 (0.55-1.02) mg/dL Est Cr Clr Drug Dosing 69.99 mL/min Estimated GFR (MDRD) > 60 (>60) mL/min BUN/Creatinine Ratio 15.0 (14-18) Glucose 114 (80-115) mg/dL Lactic Acid (0.4-2.0) mmol/L Calcium 8.1 L (8.5-10.1) mg/dL Total Bilirubin 1.2 H (0.2-1.0) mg/dL AST 60 H (15-37) U/L ALT 34 (14-59) U/L Alkaline Phosphatase 105 (46-116) U/L Troponin I 0.054 (0.00-0.056) ng/mL C-Reactive Protein 3.9 H* (<1.0) mg/dL NT-Pro-B Natriuret Pep (0-125) pg/mL Total Protein 6.4 (6.4-8.2) g/dl Albumin 3.3 L (3.4-5.0) g/dl Globulin 3.1 gm/dL Albumin/Globulin Ratio 1.1 (1-2) Urine Color (Yellow) Urine Appearance (Clear) Urine pH (5.0-8.0) Ur Specific [place] (1.005-1.030) Urine Protein (Negative) Urine Glucose (UA) (Negative) Urine Ketones (Negative) Urine Occult Blood (Negative) Urine Nitrite (Negative) Urine Bilirubin (Negative) Urine Urobilinogen (0.2-1.0) Ur Leukocyte Esterase (Negative) Urine RBC (0-5) /hpf Urine WBC (0-5) /hpf Ur Epithelial Cells (0-5) /hpf Ur Squamous Epith Cells (0-5) /hpf Amorphous Sediment (NOT SEEN) /hpf Urine Bacteria (FEW) /hpf Urine Mucus (FEW) /hpf 08/10/20 08/10/20 08/10/20 Range/Units 17:58 18:18 20:24 WBC (3.98-10.04) K/mm3 RBC (3.98-5.22) M/mm3 Hgb (11.2-15.7) gm/dl Hct (34.1-44.9) % MCV (79.4-94.8) fl MCH (25.6-32.2) pg MCHC (32.2-35.5) g/dl RDW Std Deviation (36.4-46.3) fL Plt Count (182-369) K/mm3 MPV (9.4-12.3) fl Neutrophils % (Manual) (40-60) % Band Neutrophils % (0-10) % Lymphocytes % (Manual) (20-40) % Atypical Lymphs % % Monocytes % (Manual) (2-10) % Eosinophils % (Manual) (0.7-5.8) % Basophils % (Manual) (0.1-1.2) Platelet Estimate RBC Morph Comment PT (9.7-12.0) SECONDS INR Sodium (136-145) mEq/L Potassium (3.5-5.1) mEq/L Chloride (98-107) mEq/L Carbon Dioxide (21-32) mEq/L Anion Gap (5-15) BUN (7-18) mg/dL Creatinine (0.55-1.02) mg/dL Est Cr Clr Drug Dosing mL/min Estimated GFR (MDRD) (>60) mL/min BUN/Creatinine Ratio (14-18) Glucose (80-115) mg/dL Lactic Acid 1.1 (0.4-2.0) mmol/L Calcium (8.5-10.1) mg/dL Total Bilirubin (0.2-1.0) mg/dL AST (15-37) U/L ALT (14-59) U/L Alkaline Phosphatase (46-116) U/L Troponin I (0.00-0.056) ng/mL C-Reactive Protein (<1.0) mg/dL NT-Pro-B Natriuret Pep (0-125) pg/mL Total Protein (6.4-8.2) g/dl Albumin (3.4-5.0) g/dl Globulin gm/dL Albumin/Globulin Ratio (1-2) Urine Color Yellow Yellow (Yellow) Urine Appearance Clear Clear (Clear) Urine pH 7.0 6.5 (5.0-8.0) Ur Specific [place] 1.020 1.010 (1.005-1.030) Urine Protein 1+ H Negative (Negative) Urine Glucose (UA) Negative Negative (Negative) Urine Ketones 2+ H 1+ H (Negative) Urine Occult Blood Trace-lysed H Trace-lysed H (Negative) Urine Nitrite Negative Negative (Negative) Urine Bilirubin Negative Negative (Negative) Urine Urobilinogen 0.2 0.2 (0.2-1.0) Ur Leukocyte Esterase Negative Negative (Negative) Urine RBC 5-10 H 0-5 (0-5) /hpf Urine WBC 0-5 0-5 (0-5) /hpf Ur Epithelial Cells 0-5 (0-5) /hpf Ur Squamous Epith Cells Not seen (0-5) /hpf Amorphous Sediment Few H (NOT SEEN) /hpf Urine Bacteria Few Rare (FEW) /hpf Urine Mucus Not seen Not seen (FEW) /hpf 08/10/20 08/10/20 Range/Units 21:07 21:07 WBC (3.98-10.04) K/mm3 RBC (3.98-5.22) M/mm3 Hgb (11.2-15.7) gm/dl Hct (34.1-44.9) % MCV (79.4-94.8) fl MCH (25.6-32.2) pg MCHC (32.2-35.5) g/dl RDW Std Deviation (36.4-46.3) fL Plt Count (182-369) K/mm3 MPV (9.4-12.3) fl Neutrophils % (Manual) (40-60) % Band Neutrophils % (0-10) % Lymphocytes % (Manual) (20-40) % Atypical Lymphs % % Monocytes % (Manual) (2-10) % Eosinophils % (Manual) (0.7-5.8) % Basophils % (Manual) (0.1-1.2) Platelet Estimate RBC Morph Comment PT (9.7-12.0) SECONDS INR Sodium (136-145) mEq/L Potassium (3.5-5.1) mEq/L Chloride (98-107) mEq/L Carbon Dioxide (21-32) mEq/L Anion Gap (5-15) BUN (7-18) mg/dL Creatinine (0.55-1.02) mg/dL Est Cr Clr Drug Dosing mL/min Estimated GFR (MDRD) (>60) mL/min BUN/Creatinine Ratio (14-18) Glucose (80-115) mg/dL Lactic Acid (0.4-2.0) mmol/L Calcium (8.5-10.1) mg/dL Total Bilirubin (0.2-1.0) mg/dL AST (15-37) U/L ALT (14-59) U/L Alkaline Phosphatase (46-116) U/L Troponin I 0.059 H* (0.00-0.056) ng/mL C-Reactive Protein (<1.0) mg/dL NT-Pro-B Natriuret Pep 2496 H (0-125) pg/mL Total Protein (6.4-8.2) g/dl Albumin (3.4-5.0) g/dl Globulin gm/dL Albumin/Globulin Ratio (1-2) Urine Color (Yellow) Urine Appearance (Clear) Urine pH (5.0-8.0) Ur Specific [place] (1.005-1.030) Urine Protein (Negative) Urine Glucose (UA) (Negative) Urine Ketones (Negative) Urine Occult Blood (Negative) Urine Nitrite (Negative) Urine Bilirubin (Negative) Urine Urobilinogen (0.2-1.0) Ur Leukocyte Esterase (Negative) Urine RBC (0-5) /hpf Urine WBC (0-5) /hpf Ur Epithelial Cells (0-5) /hpf Ur Squamous Epith Cells (0-5) /hpf Amorphous Sediment (NOT SEEN) /hpf Urine Bacteria (FEW) /hpf Urine Mucus (FEW) /hpf Meds: Medications Generic Name Dose Route Start Last Admin Trade Name Kami PRN Reason Stop Dose Admin Sodium Chloride 10 ml 08/10/20 18:00 08/10/20 19:00 Saline Flush FLUSH 10 ml ASDIRECTED PRN Administration Keep Vein Open Discontinued Medications Generic Name Dose Route Start Last Admin Trade Name Freeddie PRN Reason Stop Dose Admin Albuterol/Ipratropium 3 ml 08/10/20 20:41 08/10/20 21:16 Duoneb 3.0-0.5 Mg/3 Ml NEB 08/10/20 20:42 3 ml ONETIME ONE Administration Furosemide 40 mg 08/10/20 21:47 08/10/20 22:18 Lasix IVPUSH 08/10/20 21:48 40 mg NOW ONE Administration Hydromorphone HCl 0.5 mg 08/10/20 19:50 08/10/20 20:06 Dilaudid IVPUSH 08/10/20 19:51 0.5 mg ONETIME ONE Administration Hydromorphone HCl 0.5 mg 08/10/20 21:32 08/10/20 21:46 Dilaudid IVPUSH 08/10/20 21:33 0.5 mg ONETIME ONE Administration Sodium Chloride 1,000 mls @ 999 mls/hr 08/10/20 18:03 08/10/20 19:00 Normal Saline IV 08/10/20 19:03 999 mls/hr ONETIME ONE Administration - Re-Assessments/Exams Free Text/Narrative Re-Assessment/Exam: 08/10/20 18:08 Patient presents to the ED for the evaluation of her fall. We will get a head CT, chest x-ray, and x-rays of her pelvis and sacrum for initial purposes, she will also have some labs drawn for further evaluation. 08/10/20 20:48 The patient's labs did come back, her troponin was within normal limits, but there was a bump at 0.054. She will have a 3-hour repeat troponin to be drawn at 2100. Her CRP was elevated at 3.9. Patient was requiring pain medication for her fall. She was given 0.5mg of IV Dilaudid, and she is subsequently having some hypoxic issues. We do have her on a simple mask at this time at around 6 L, and she is satting roughly 90 to 91%. 08/10/20 21:27 The patient's chest x-ray has been completed, and it does show worsening multifocal infiltrates. She did have a CT angio of her chest done on August 03, 2020 but there was no sign of a pulmonary embolus. She had this because her D-dimer was mildly elevated at 0.81. It did show pneumonitis versus pneumonia at that time. The patient's repeat troponin is still pending at this time. 08/10/20 22:42 I have called multiple facilities and both hospitals in [facility] are on diversion at this time. Patient has been ultimately accepted at [facility] ER by Dr. Velasquez for further management. She does not want any sort of heparin done with this patient at this time. She states to hold off on fluids as well. We will write orders for transfer, to include some pain medication as needed. Departure - Departure Time of Disposition: 22:55 Disposition: DC/Tfer to Acute Hospital 02 Condition: Fair Clinical Impression: Elevated troponin I level, Hypoxia Bilateral pneumonia Qualifiers: Pneumonia type: due to unspecified organism Lung location: unspecified part of lung Qualified Code(s): J18.9 - Pneumonia, unspecified organism Heart failure Qualifiers: Heart failure type: unspecified Heart failure chronicity: unspecified Qualified Code(s): I50.9 - Heart failure, unspecified - Discharge Information Referrals: Nancy Lubin NP [Primary Care Provider] - Forms: ED Department Discharge Sepsis Event Note (ED) - Evaluation Sepsis Screening Result: No Definite Risk - Focused Exam Vital Signs: Vital Signs Temp Pulse Resp BP Pulse Ox Pulse Ox 08/10/20 21:06 94 L 08/10/20 20:41 95 08/10/20 17:47 97.9 F 95 16 163/77 H 88 L - My Orders Last 24 Hours: My Active Orders 08/10/20 18:00 Chest 1V Frontal [CR] Stat Sodium Chloride 0.9% [Saline Flush] 10 ml FLUSH ASDIRECTED PRN Blood Culture x2 Reflex Set [OM.PC] Stat Saline Lock Insert [OM.PC] Stat EKG 12 Lead [EK] Stat 08/10/20 18:02 Head wo Cont [CT] Stat Sacrum Coccyx Min 2V [CR] Stat 08/10/20 18:03 Pelvis 1V or 2V [CR] Stat 08/10/20 18:09 Oxygen Therapy, ED [RC] ASDIRECTED 08/10/20 18:18 Insert Ch[place]olm Catheter [Insert Urinary Catheter] [OM.PC] Stat Urinary Catheter Assessment [RC] ASDIRECTED 08/10/20 18:28 CULTURE BLOOD [BC] Stat 08/10/20 18:49 CULTURE BLOOD [BC] Stat 08/10/20 19:50 EKG Documentation Completion [RC] STAT 08/10/20 20:41 RT Aerosol Therapy [RC] ASDIRECTED - Assessment/Plan Last 24 Hours: My Active Orders 08/10/20 18:00 Chest 1V Frontal [CR] Stat Sodium Chloride 0.9% [Saline Flush] 10 ml FLUSH ASDIRECTED PRN Blood Culture x2 Reflex Set [OM.PC] Stat Saline Lock Insert [OM.PC] Stat EKG 12 Lead [EK] Stat 11/09/20 18:02 Head wo Cont [CT] Stat Sacrum Coccyx Min 2V [CR] Stat 08/10/20 18:03 Pelvis 1V or 2V [CR] Stat 08/10/20 18:09 Oxygen Therapy, ED [RC] ASDIRECTED 08/10/20 18:18 Insert Ch[place]olm Catheter [Insert Urinary Catheter] [OM.PC] Stat Urinary Catheter Assessment [RC] ASDIRECTED 08/10/20 18:28 CULTURE BLOOD [BC] Stat 08/10/20 18:49 CULTURE BLOOD [BC] Stat 08/10/20 19:50 EKG Documentation Completion [RC] STAT 08/10/20 20:41 RT Aerosol Therapy [RC] ASDIRECTED
[2020-08-10] MEDS ORDERED: HYDROmorphone 0.5 MG/0.5 ML Syringe IVPUSH ONE ×2 (19:50→21:32)
[2020-08-10] MEDS ORDERED: Albuterol/Ipratropium 3.0-0.5 MG/3 ML Neb Soln NEB ONE (20:41)
[2020-08-10] MEDS ORDERED: Furosemide 40 MG/4 ML VIAL IVPUSH ONE (21:47)
[2020-08-10] MEDS ORDERED: LORazepam 2 MG/ML SDV IVPUSH ONE (23:50)
--- NOTE | 2020-08-11 10:43 | CT ---
PROCEDURE INFORMATION: Exam: CT Head Without Contrast Exam date and time: 08/10/2020 6:47 PM Age: 70 years old Clinical indication: Dizziness; Patient HX: Fell and hit head today TECHNIQUE: Imaging protocol: Computed tomography of the head without contrast. COMPARISON: CT Head wo Cont 04/03/2020 1:30 PM FINDINGS: Brain: There is mild amount of scattered areas of hypoattenuation of the supratentorial white matter, most likely secondary to microvascular ischemic changes. No acute intracranial hemorrhage. Cerebral ventricles: No ventriculomegaly. Bones/joints: Unremarkable. No acute fracture. Paranasal sinuses: Visualized sinuses are unremarkable. No fluid levels. Mastoid air cells: Visualized mastoid air cells are well aerated. Soft tissues: Unremarkable. IMPRESSION: No acute intracranial process. Thank you for allowing us to participate in the care of your patient. Dictated and Authenticated by: Bird Main MD 08/10/2020 9:02 PM Central Time ([place] & [place]) [facility]ITAL[facility]
--- NOTE | 2020-08-11 10:45 | CR ---
PROCEDURE INFORMATION: Exam: XR Sacrum and Coccyx, 2 or More Views Exam date and time: 08/10/2020 8:53 PM Age: 70 years old Clinical indication: Injury or trauma; Blunt trauma (contusions or hematomas); Patient HX: Buttock/tailbone pain after fall TECHNIQUE: Imaging protocol: XR of the sacrum and coccyx, 2 or more views. COMPARISON: DX Hip Min 2V or 3V w Pelvis Lt 04/03/2020 1:34 PM FINDINGS: Bones/joints: Normal. No acute fracture. Soft tissues: Normal. IMPRESSION: No acute findings. Thank you for allowing us to participate in the care of your patient. Dictated and Authenticated by: Bird Main MD 08/10/2020 10:17 PM Central Time ([place] & [place]) [facility]
--- NOTE | 2020-08-11 10:45 | CR ---
PROCEDURE INFORMATION: Exam: XR Pelvis Exam date and time: 08/10/2020 8:53 PM Age: 70 years old Clinical indication: Injury or trauma; Blunt trauma (contusions or hematomas); Does not apply; Pelvic region; Patient HX: Buttock pain after fall TECHNIQUE: Imaging protocol: XR pelvis. Views: 1 or 2 view. COMPARISON: DX Hip Min 2V or 3V w Pelvis Lt 04/03/2020 1:34 PM FINDINGS: Bones/joints: Left hip arthroplasty again noted. No acute fracture. Deep compressive laminectomies changes in lower lumbar spine Soft tissues: Unremarkable. IMPRESSION: No acute findings. Thank you for allowing us to participate in the care of your patient. Dictated and Authenticated by: Bird Main MD 08/10/2020 10:17 PM Central Time ([place] & [place]) [facility]
--- NOTE | 2020-08-11 10:46 | CR ---
PROCEDURE INFORMATION: Exam: XR Chest, 1 View Exam date and time: 08/10/2020 8:55 PM Age: 70 years old Clinical indication: Patient HX: Recent pneumonia, fall, weakness TECHNIQUE: Imaging protocol: XR of the chest Views: 1 view. COMPARISON: CT Ang Chest 08/03/2020 3:33 PM FINDINGS: Lungs: Progression of now more confluent multifocal infiltrates throughout both lungs. Pleural space: Unremarkable. No pleural effusion. No pneumothorax. Heart/Mediastinum: Mild cardiomegaly again noted Bones/joints: Unremarkable. IMPRESSION: Worsening multifocal infiltrates Thank you for allowing us to participate in the care of your patient. Dictated and Authenticated by: Bird Main MD 08/10/2020 10:18 PM Central Time ([place] & [place]) [facility]
== END 2020-08-11 01:00 ==
LOC: JD.ED 17:40 → SUPCPDRO 17:40 → JD.ED 08-11 01:00
DX: J18.9 Pneumonia, unspecified organism (principal); I11.0 Hypertensive heart disease with heart failure; I50.9 Heart failure, unspecified; R79.89 Other specified abnormal findings of blood chemistry; R09.02 Hypoxemia; K21.9 Gastro-esophageal reflux disease without esophagitis; M19.90 Unspecified osteoarthritis, unspecified site; F41.9 Anxiety disorder, unspecified; F32.9 Major depressive disorder, single episode, unspecified; E11.9 Type 2 diabetes mellitus without complications; E66.9 Obesity, unspecified; Z88.6 Allergy status to analgesic agent; Z88.8 Allergy status to other drugs, medicaments and biological substances; Z88.5 Allergy status to narcotic agent; Z88.0 Allergy status to penicillin; Z79.899 Other long term (current) drug therapy; Z79.4 Long term (current) use of insulin
CPT/HCPCS: 36415; 51702; 70450; 71045; 72170; 72220; 80053; 81001; 83605; 83880; 84484; 85007; 85027; 85610; 86140; 87040; 93005; 94640; 96374; 96375; 96376; 99285; J1170; J1940; J2060; J7030; 93010; J7620-GY

== ENCOUNTER 2021-10-10 06:28 | Emergency (ER) | payer MEDICARE, MEDICAID ==
[2021-10-10] MEDS ORDERED: Sodium Chloride 0.9% 10 ML Syringe FLUSH PRN (07:00)
--- NOTE | 2021-10-10 07:02 | EDM.PDOC ---
ED HPI GENERAL MEDICAL PROBLEM - General Chief Complaint: Neuro Symptoms/Deficits Stated Complaint: [facility] Time Seen by Provider: 10/10/21 06:51 Source of Information: Reports: Patient History Limitations: Reports: No Limitations - History of Present Illness INITIAL COMMENTS - FREE TEXT/NARRATIVE: The patient presents by [facility] from [place] for generalized weakness and jerking movements. She has a history of MS and feels she is having a flair up of her MS. She was put on prednisone recently but it was a relatively low dose for MS flair. She is having trouble getting around. She normally has trouble but this is more pronounced. She denies fever, chills, cough, chest pain, shortness of breath, abdominal pain, nausea or vomiting. Onset: Gradual Duration: Day(s): Severity: Moderate Improves with: Reports: None Worsens with: Reports: None Associated Symptoms: Reports: No Other Symptoms - Related Data Allergies Allergy/AdvReac Type Severity Reaction Status Date / Time acetaminophen [From Percocet] Allergy Cannot Verified 10/10/21 06:54 Remember butorphanol [From Stadol] Allergy Cannot Verified 10/10/21 06:54 Remember codeine Allergy Itching Verified 10/10/21 06:54 cyclobenzaprine Allergy Diarrhea Verified 10/10/21 06:54 glatiramer (copolymer 1) Allergy Cannot Verified 10/10/21 06:54 [From Copaxone] Remember interferon beta-1a Allergy Cannot Verified 10/10/21 06:54 [From Avonex] Remember morphine Allergy Itching Verified 10/10/21 06:54 oxycodone [From Percocet] Allergy Cannot Verified 10/10/21 06:54 Remember Penicillins Allergy Hives Verified 10/10/21 06:54 promethazine [From Phenergan] Allergy Cannot Verified 10/10/21 06:54 Remember Home Meds: Home Meds ARIPiprazole [Abilify] 20 mg PO BEDTIME 07/19/18 [History] Gabapentin [Neurontin] 600 mg PO QID 07/19/18 [History] Multivitamin [Multivitamins] 1 cap PO DAILY 07/19/18 [History] Omeprazole 20 mg PO DAILY 07/19/18 [History] SitaGLIPtin [Januvia] 100 mg PO DAILY 07/19/18 [History] Sulfamethoxazole/Trimethoprim [Sulfamethoxazole-Tmp Ss Tablet] 1 tab PO BEDTIME 07/19/18 [History] Teriflunomide [Aubagio] 14 mg PO DAILY 07/19/18 [History] Venlafaxine HCl [Venlafaxine ER] 150 mg PO DAILY 07/19/18 [History] busPIRone [Buspar] 30 mg PO BID 07/19/18 [History] ramipriL [Altace] 5 mg PO DAILY 07/19/18 [History] tiZANidine [Zanaflex] 8 mg PO ASDIRECTED 07/19/18 [History] traZODone HCl [Trazodone HCl] 50 mg PO BEDTIME 07/19/18 [History] Cholecalciferol (Vitamin D3) [Vitamin D3] 2,000 unit PO DAILY 06/29/19 [History] Insulin Degludec [Tresiba] 64 units SUBCUT DAILY 06/29/19 [History] cycloSPORINE [Restasis] 1 drop EYEBOTH BID 06/29/19 [History] traMADol [Ultram] 50 mg PO Q4HR PRN 06/29/19 [History] Calcium Carbonate 600 mg PO DAILY 04/03/20 [History] Naproxen 500 mg PO TID PRN 04/03/20 [History] Baclofen 20 mg PO TID 07/01/20 [History] Butalbit/Acetamin/Caff/Codeine [Fioricet-Cod 31-584-27-30 Cap] 1 each PO BID PRN 07/01/20 [History] Insulin Aspart [NovoLOG] 8 - 15 unit SQ TID 07/01/20 [History] Metoprolol Succinate [Toprol XL] 50 mg PO DAILY 07/01/20 [History] Triamcinolone Acetonide [Kenalog 0.1% Crm] 15 gm .XX BID 07/01/20 [History] Trospium [Sanctura] 20 mg PO BID 07/01/20 [History] atorvaSTATin [Lipitor] 20 mg PO DAILY 07/01/20 [History] oxyCODONE HCl/Acetaminophen [Percocet 5-325 mg Tablet] 1 each PO Q4HR PRN 07/01/20 [History] Furosemide [Lasix] 20 mg PO DAILY 08/10/20 [History] Nystatin 1 each TOP BID 08/10/20 [History] Past Medical History HEENT History: Reports: Cataract, Other (See Below) Other HEENT History: glasses Cardiovascular History: Reports: Hypertension Gastrointestinal History: Reports: GERD, Irritable Bowel Syndrome, Other (See Below) Other Gastrointestinal History: partial bowel obstruction with sx around 1991 Genitourinary History: Reports: Urinary Incontinence, Other (See Below) Other Genitourinary History: self cath's, bladder lift [employer] History: Reports: , Other (See Below) Other [employer] History: hysterectomy Musculoskeletal History: Reports: Arthritis, Other (See Below) Other Musculoskeletal History: MS, left hip replacement, back sx-laminectomy Neurological History: Reports: MS Psychiatric History: Reports: Anxiety, Depression Endocrine/Metabolic History: Reports: Diabetes, Type II, Obesity/BMI 30+ Dermatologic History: Reports: Eczema - Infectious Disease History Infectious Disease History: Reports: Novel Coronavirus, Shingles - Past Surgical History HEENT Surgical History: Reports: Adenoidectomy, Tonsillectomy GI Surgical History: Reports: Cholecystectomy Social & Family History - Family History Family Medical History: No Pertinent Family History - Tobacco Use Tobacco Use Status *Q: Never Tobacco User Second Hand Smoke Exposure: No - Caffeine Use Caffeine Use: Reports: None - Recreational Drug Use Recreational Drug Use: No ED ROS GENERAL - Review of Systems Review Of Systems: See Below Constitutional: Reports: Malaise, Weakness, Fatigue. Denies: Fever, Chills HEENT: Reports: No Symptoms Respiratory: Reports: No Symptoms Cardiovascular: Reports: No Symptoms Endocrine: Reports: No Symptoms GI/Abdominal: Reports: No Symptoms : Reports: No Symptoms Musculoskeletal: Reports: No Symptoms Skin: Reports: No Symptoms Neurological: Reports: Weakness (Generalized and worse on the left) ED EXAM, NEURO - Physical Exam Exam: See Below Exam Limited By: No Limitations General Appearance: Alert, No Apparent Distress Ears: Normal External Exam Nose: Normal Inspection Head Exam: Atraumatic, Normocephalic Neck: Normal Inspection Respiratory/Chest: No Respiratory Distress, Lungs Clear, Normal Breath Sounds Cardiovascular: Regular Rate, Rhythm, No Edema, No Murmur GI/Abdominal: Soft, Non-Tender, No Organomegaly, No Mass Neurological: Alert, Other (Generalized weakness with left worse then the right) Course - Vital Signs Last Recorded V/S: Last Vital Signs Temp 98.0 F 10/10/21 06:35 Pulse 61 10/10/21 06:35 Resp 17 10/10/21 06:35 BP 120/67 10/10/21 06:35 Pulse Ox 93 L 10/10/21 06:35 - Orders/Labs/Meds Orders: Active Orders 24 hr Category Date Time Status Cardiac Monitoring [RC] . DIRECTED Care 10/10/21 07:00 Active Peripheral IV Care [RC] . DIRECTED Care 10/10/21 07:01 Active CXR [Chest 1V Frontal] [CR] Stat Exams 10/10/21 07:55 Taken Sodium Chloride 0.9% [Saline Flush] Med 10/10/21 07:00 Active 10 ml FLUSH ASDIRECTED PRN Peripheral IV Insertion Adult [OM.PC] Stat Oth 10/10/21 07:00 Ordered Medication Orders Sodium Chloride (Sodium Chloride 0.9% 10 Ml Syringe) 10 ml FLUSH ASDIRECTED PRN PRN Reason: Keep Vein Open Last Admin: 10/10/21 07:27 Dose: 10 ml Documented by: SAMIR Labs: Laboratory Tests 10/10/21 10/10/21 Range/Units 07:22 07:22 WBC 6.57 (3.98-10.04) K/mm3 RBC 4.64 (3.98-5.22) M/mm3 Hgb 12.4 D (11.2-15.7) gm/dl Hct 40.2 (34.1-44.9) % MCV 86.6 D (79.4-94.8) fl MCH 26.7 (25.6-32.2) pg MCHC 30.8 L (32.2-35.5) g/dl RDW Std Deviation 44.3 (36.4-46.3) fL Plt Count 166 L (182-369) K/mm3 MPV 12.6 H (9.4-12.3) fl Neut % (Auto) 65.2 (34.0-71.1) % Lymph % (Auto) 15.8 L (19.3-51.7) % [place] % (Auto) 15.1 H (4.7-12.5) % Eos % (Auto) 3.2 (0.7-5.8) Baso % (Auto) 0.5 (0.1-1.2) % Neut # (Auto) 4.29 (1.56-6.13) K/mm3 Lymph # (Auto) 1.04 L (1.18-3.74) K/mm3 [place] # (Auto) 0.99 H (0.24-0.36) K/mm3 Eos # (Auto) 0.21 (0.04-0.36) K/mm3 Baso # (Auto) 0.03 (0.01-0.08) K/mm3 Sodium 139 (136-145) mEq/L Potassium 4.2 (3.5-5.1) mEq/L Chloride 102 (98-107) mEq/L Carbon Dioxide 31 (21-32) mEq/L Anion Gap 10.2 (5-15) BUN 13 (7-18) mg/dL Creatinine 0.8 (0.55-1.02) mg/dL Est Cr Clr Drug Dosing 56.50 mL/min Estimated GFR (MDRD) > 60 (>60) mL/min BUN/Creatinine Ratio 16.3 (14-18) Glucose 189 H (70-99) mg/dL Calcium 8.9 (8.5-10.1) mg/dL Magnesium 1.8 (1.8-2.4) mg/dL Total Bilirubin 0.5 (0.2-1.0) mg/dL AST 31 (15-37) U/L ALT 40 (14-59) U/L Alkaline Phosphatase 73 (46-116) U/L Total Protein 6.5 (6.4-8.2) g/dl Albumin 3.6 (3.4-5.0) g/dl Globulin 2.9 gm/dL Albumin/Globulin Ratio 1.2 (1-2) Meds: Medications Generic Name Dose Route Start Last Admin Trade Name Freq PRN Reason Stop Dose Admin Sodium Chloride 10 ml 10/10/21 07:00 10/10/21 07:27 Sodium Chloride 0.9% 10 Ml Syringe FLUSH 10 ml ASDIRECTED PRN Administration Keep Vein Open Discontinued Medications Generic Name Dose Route Start Last Admin Trade Name Freq PRN Reason Stop Dose Admin Methylprednisolone Sodium 258 mls @ 258 mls/hr 10/10/21 07:01 10/10/21 07:27 Succinate 1,000 mg/ Sodium IV 10/10/21 07:02 258 mls/hr Chloride ONETIME ONE Administration - Re-Assessments/Exams Free Text/Narrative Re-Assessment/Exam: 10/10/21 07:35 I ordered some lab work and solu-medrol 1 gram IV. 10/10/21 08:57 Her CBC and CMP look good. I will set her up for outpatient solu-medrol 1 gram for 4 more days. Departure - Departure Time of Disposition: 09:00 Disposition: Home, Self-Care 01 Condition: Good Clinical Impression: Multiple sclerosis exacerbation - Discharge Information *PRESCRIPTION DRUG MONITORING PROGRAM REVIEWED*: Not Applicable *COPY OF PRESCRIPTION DRUG MONITORING REPORT IN PATIENT [place]: Not Applicable Referrals: Jax Gonzales MD [Primary Care Provider] - 1 Week Forms: ED Department Discharge Additional Instructions: I have ordered solu-medrol 1 gram IV daily for 4 more doses. Please call to return for that infusion. Please return if you are worse. Sepsis Event Note (ED) - Evaluation Sepsis Screening Result: No Definite Risk - Focused Exam Vital Signs: Vital Signs Temp Pulse Resp BP Pulse Ox 10/10/21 06:35 98.0 F 61 17 120/67 93 L - My Orders Last 24 Hours: My Active Orders 10/10/21 07:00 Cardiac Monitoring [RC] . DIRECTED Sodium Chloride 0.9% [Saline Flush] 10 ml FLUSH ASDIRECTED PRN Peripheral IV Insertion Adult [OM.PC] Stat 10/10/21 07:01 Peripheral IV Care [RC] . DIRECTED 10/10/21 07:55 CXR [Chest 1V Frontal] [CR] Stat - Assessment/Plan Last 24 Hours: My Active Orders 10/10/21 07:00 Cardiac Monitoring [RC] . DIRECTED Sodium Chloride 0.9% [Saline Flush] 10 ml FLUSH ASDIRECTED PRN Peripheral IV Insertion Adult [OM.PC] Stat 10/10/21 07:01 Peripheral IV Care [RC] . DIRECTED 10/10/21 07:55 CXR [Chest 1V Frontal] [CR] Stat
[2021-10-10 09:46] VITALS: BP 90/44; PULSE 51
--- NOTE | 2021-10-11 09:15 | CR ---
EXAM: XR CHEST 1 VIEW LOCATION: [facility] DATE/TIME: 10/10/2021 8:05 AM INDICATION: Cough COMPARISON: 08/10/2020 IMPRESSION: Heart size and vascularity are normal. Linear bibasilar opacities could represent subsegmental atelectasis versus scar. No focal consolidation, pneumothorax nor pleural effusion. SIGNED BY: Navneet Pina MD 10/10/2021 10:18 AM [facility]
== END 2021-10-10 09:30 | disposition home or self-care (01) ==
LOC: JD.ED 06:28
DX: G35 Multiple sclerosis (principal); I10 Essential (primary) hypertension; K21.9 Gastro-esophageal reflux disease without esophagitis; E11.9 Type 2 diabetes mellitus without complications; E66.9 Obesity, unspecified; Z68.30 Body mass index [BMI] 30.0-30.9, adult; Z88.8 Allergy status to other drugs, medicaments and biological substances; Z88.5 Allergy status to narcotic agent; Z88.0 Allergy status to penicillin; Z79.899 Other long term (current) drug therapy
CPT/HCPCS: 36415; 71045; 80053; 83735; 85025; 96365; 99285; J2930; J7050

== ENCOUNTER 2022-03-03 02:49 | Emergency (ER) | payer MEDICARE, MEDICAID ==
[2022-03-03 02:57] VITALS: BP 117/52; PULSE 55
[2022-03-03] MEDS ORDERED: Sodium Chloride 0.9% 10 ML Syringe FLUSH PRN (03:10)
[2022-03-03] MEDS ORDERED: methylPREDNISolone Sodium Succinate 2 GM Vial IV ONE (03:11)
[2022-03-03 04:02] LABS: ESTIMATED GFR > 60 mL/min (>60)
== END 2022-03-03 07:00 | disposition home or self-care (01) ==
LOC: JD.ED 02:49
DX: G35 Multiple sclerosis (principal); I10 Essential (primary) hypertension; K21.9 Gastro-esophageal reflux disease without esophagitis; E11.9 Type 2 diabetes mellitus without complications; E66.9 Obesity, unspecified; Z68.33 Body mass index [BMI] 33.0-33.9, adult; Z88.8 Allergy status to other drugs, medicaments and biological substances; Z88.5 Allergy status to narcotic agent; Z88.0 Allergy status to penicillin; Z79.899 Other long term (current) drug therapy
CPT/HCPCS: 36415; 80053; 83735; 85025; 96365; 99284; J2930; J3490; J7050; 99283

== ENCOUNTER 2022-10-04 04:02 | Emergency (ER) | payer MEDICARE, MEDICAID ==
[2022-10-04 04:13] VITALS: BP 147/74; PULSE 57
== END 2022-10-04 05:17 | disposition home or self-care (01) ==
LOC: JD.ED 04:02
DX: R20.2 Paresthesia of skin (principal); E78.00 Pure hypercholesterolemia, unspecified; I10 Essential (primary) hypertension; K21.9 Gastro-esophageal reflux disease without esophagitis; M19.90 Unspecified osteoarthritis, unspecified site; E11.9 Type 2 diabetes mellitus without complications; E66.9 Obesity, unspecified; Z68.31 Body mass index [BMI] 31.0-31.9, adult; Z87.891 Personal history of nicotine dependence; Z88.8 Allergy status to other drugs, medicaments and biological substances; Z88.6 Allergy status to analgesic agent; Z88.5 Allergy status to narcotic agent; Z88.0 Allergy status to penicillin; Z79.899 Other long term (current) drug therapy
CPT/HCPCS: 99284

== ENCOUNTER 2022-11-20 05:06 | Emergency (ER) | payer MEDICARE, MEDICAID ==
[2022-11-20 06:57] LABS: CORONAVIRUS COVID-19 NAA NEGATIVE (NEGATIVE)
[2022-11-20 08:25] VITALS: BP 131/75; PULSE 88
== END 2022-11-20 08:10 | disposition home or self-care (01) ==
LOC: JD.ED 05:06
DX: R42 Dizziness and giddiness (principal); Z86.79 Personal history of other diseases of the circulatory system; E78.00 Pure hypercholesterolemia, unspecified; I10 Essential (primary) hypertension; K21.9 Gastro-esophageal reflux disease without esophagitis; M19.90 Unspecified osteoarthritis, unspecified site; E11.9 Type 2 diabetes mellitus without complications; E66.9 Obesity, unspecified; Z68.32 Body mass index [BMI] 32.0-32.9, adult; Z88.8 Allergy status to other drugs, medicaments and biological substances; Z88.5 Allergy status to narcotic agent; Z88.0 Allergy status to penicillin; Z79.899 Other long term (current) drug therapy; Z79.4 Long term (current) use of insulin; Z20.822 Contact with and (suspected) exposure to COVID-19
CPT/HCPCS: 0241U; 36415; 70450; 80053; 81003; 85025; 99285; 99284

== ENCOUNTER 2023-01-19 03:02 | Emergency (ER) | payer MEDICARE, MEDICAID ==
[2023-01-19 05:26] LABS: CORONAVIRUS COVID-19 NAA NEGATIVE (NEGATIVE)
[2023-01-19 06:59] VITALS: BP 168/89; PULSE 66
== END 2023-01-19 06:59 | disposition home or self-care (01) ==
LOC: JD.ED 03:02
DX: R53.1 Weakness (principal); E78.00 Pure hypercholesterolemia, unspecified; I10 Essential (primary) hypertension; K21.9 Gastro-esophageal reflux disease without esophagitis; E11.9 Type 2 diabetes mellitus without complications; E66.9 Obesity, unspecified; Z79.4 Long term (current) use of insulin; Z79.899 Other long term (current) drug therapy; Z88.5 Allergy status to narcotic agent; Z88.8 Allergy status to other drugs, medicaments and biological substances; Z20.822 Contact with and (suspected) exposure to COVID-19; Z68.31 Body mass index [BMI] 31.0-31.9, adult
CPT/HCPCS: 0240U; 36415; 71045; 80053; 81003; 85025; 99285; 99283

== ENCOUNTER 2023-01-20 10:55 | Inpatient (IN) | payer MEDICARE, MEDICAID ==
[2023-01-20] MEDS: Sodium Chloride 0.9% 10 ML Syringe FLUSH PRN (12:56)
[2023-01-20] MEDS ORDERED: Docusate Sodium 100 MG Cap PO PRN (14:25)
[2023-01-20] MEDS ORDERED: Psyllium Husk Powder Sugar Free 5.85 GM Packet PO PRN (14:25)
[2023-01-20] MEDS ORDERED: HYDROmorphone 0.5 MG/0.5 ML Syringe IVPUSH PRN (14:25)
[2023-01-20] MEDS ORDERED: Ondansetron 4 MG/2 ML SDV IVPUSH PRN (14:25)
[2023-01-20] MEDS: Gabapentin 100 MG Cap PO SCH ×2 (15:53→21:05)
[2023-01-20] MEDS: Aspirin 81 MG Tab.EC PO SCH (15:54)
[2023-01-20] MEDS: Venlafaxine 75 MG Cap.ER PO SCH (15:54)
[2023-01-20] MEDS: Enoxaparin 40 MG/0.4 ML Syringe SUBCUT SCH (15:55)
[2023-01-20] MEDS: Insulin Glargine,Human Rec. Analog 100 Units/ML 3 ML Pen SUBCUT SCH (15:55)
[2023-01-20] MEDS: atorvaSTATin 20 MG Tab PO SCH (15:55)
[2023-01-20] MEDS: Magnesium Oxide 400 MG Tab PO SCH (15:56)
[2023-01-20] MEDS: TERIFLUNOMIDE 14 MG PO SCH (15:56)
[2023-01-20] MEDS: Pantoprazole 40 MG Vial IVPUSH SCH ×2 (15:56→21:04)
[2023-01-20] MEDS: Carboxymethylcellulose Sodium 1% Ophth Gel 15 ML Bottle EYEBOTH SCH ×2 (15:57→21:28)
[2023-01-20] MEDS ORDERED: Insulin Lispro 100 Unit/ML 3 ML KwikPen SUBCUT SCH (17:30)
[2023-01-20] MEDS: Insulin Lispro 100 Unit/ML 3 ML KwikPen SUBCUT SCH ×2 (17:58→21:17)
[2023-01-20] MEDS: Multivitamin Tab PO SCH (18:21)
[2023-01-20] MEDS: ARIPiprazole 5 MG Tab PO SCH (21:05)
[2023-01-20] MEDS: traZODone 50 MG Tab PO SCH (21:15)
[2023-01-20] MEDS: hydrALAZINE 20 MG/ML SDV IVPUSH PRN (23:20)
[2023-01-20] MEDS: Acetaminophen 325 MG Tab PO PRN (23:54)
[2023-01-21] MEDS ORDERED: Baclofen 10 MG Tab PO ONE (00:34)
[2023-01-21] MEDS: Acetaminophen/oxyCODONE 325-5 MG Tab PO PRN ×2 (03:11→19:03)
[2023-01-21] MEDS: Insulin Lispro 100 Unit/ML 3 ML KwikPen SUBCUT SCH ×4 (08:19→23:03)
[2023-01-21] MEDS: Enoxaparin 40 MG/0.4 ML Syringe SUBCUT SCH (08:20)
[2023-01-21] MEDS: Baclofen 10 MG Tab PO SCH ×4 (08:21→22:21)
[2023-01-21] MEDS: Insulin Glargine,Human Rec. Analog 100 Units/ML 3 ML Pen SUBCUT SCH (08:21)
[2023-01-21] MEDS: atorvaSTATin 20 MG Tab PO SCH (08:22)
[2023-01-21] MEDS: Venlafaxine 75 MG Cap.ER PO SCH (08:22)
[2023-01-21] MEDS: Gabapentin 100 MG Cap PO SCH ×3 (08:23→22:18)
[2023-01-21] MEDS: Magnesium Oxide 400 MG Tab PO SCH (08:23)
[2023-01-21] MEDS: Aspirin 81 MG Tab.EC PO SCH (08:23)
[2023-01-21] MEDS: Metoprolol Succinate 50 MG Tab.ER PO SCH (08:24)
[2023-01-21] MEDS: Pantoprazole 40 MG Vial IVPUSH SCH ×2 (08:25→22:18)
[2023-01-21] MEDS: Carboxymethylcellulose Sodium 1% Ophth Gel 15 ML Bottle EYEBOTH SCH ×2 (08:26→22:18)
[2023-01-21] MEDS: TERIFLUNOMIDE 14 MG PO SCH (08:43)
[2023-01-21] MEDS ORDERED: Insulin Glargine,Human Rec. Analog 100 Units/ML 3 ML Pen SUBCUT ONE (10:15)
[2023-01-21] MEDS: Multivitamin Tab PO SCH (18:00)
[2023-01-21] MEDS: ARIPiprazole 5 MG Tab PO SCH (22:19)
[2023-01-21] MEDS: traZODone 50 MG Tab PO SCH (22:21)
[2023-01-22] MEDS: Acetaminophen 325 MG Tab PO PRN (05:01)
[2023-01-22] MEDS: Baclofen 10 MG Tab PO SCH ×4 (06:21→20:38)
[2023-01-22] MEDS: Insulin Lispro 100 Unit/ML 3 ML KwikPen SUBCUT SCH ×6 (08:47→20:41)
[2023-01-22] MEDS: Enoxaparin 40 MG/0.4 ML Syringe SUBCUT SCH (08:48)
[2023-01-22] MEDS: Carboxymethylcellulose Sodium 1% Ophth Gel 15 ML Bottle EYEBOTH SCH ×2 (08:48→20:41)
[2023-01-22] MEDS: Pantoprazole 40 MG Vial IVPUSH SCH ×2 (08:48→20:37)
[2023-01-22] MEDS: Venlafaxine 75 MG Cap.ER PO SCH (08:49)
[2023-01-22] MEDS: Gabapentin 100 MG Cap PO SCH ×3 (08:49→20:39)
[2023-01-22] MEDS: Metoprolol Succinate 50 MG Tab.ER PO SCH (08:50)
[2023-01-22] MEDS: Magnesium Oxide 400 MG Tab PO SCH (08:50)
[2023-01-22] MEDS: atorvaSTATin 20 MG Tab PO SCH (08:51)
[2023-01-22] MEDS: Aspirin 81 MG Tab.EC PO SCH (08:51)
[2023-01-22] MEDS ORDERED: Insulin Glargine,Human Rec. Analog 100 Units/ML 3 ML Pen SUBCUT SCH (09:00)
[2023-01-22] MEDS: TERIFLUNOMIDE 14 MG PO SCH (10:26)
[2023-01-22] MEDS ORDERED: Insulin Glargine,Human Rec. Analog 100 Units/ML 3 ML Pen SUBCUT ONE (11:00)
[2023-01-22] MEDS: amLODIPine 5 MG Tab PO SCH (12:07)
[2023-01-22] MEDS: Multivitamin Tab PO SCH (18:04)
[2023-01-22] MEDS: Acetaminophen/oxyCODONE 325-5 MG Tab PO PRN (19:50)
[2023-01-22] MEDS: ARIPiprazole 5 MG Tab PO SCH (20:39)
[2023-01-22] MEDS: traZODone 50 MG Tab PO SCH (20:39)
[2023-01-23] MEDS: Baclofen 10 MG Tab PO SCH ×4 (06:23→21:18)
[2023-01-23] MEDS: Aspirin 81 MG Tab.EC PO SCH (08:35)
[2023-01-23] MEDS: amLODIPine 5 MG Tab PO SCH (08:36)
[2023-01-23] MEDS: Enoxaparin 40 MG/0.4 ML Syringe SUBCUT SCH (08:36)
[2023-01-23] MEDS: Gabapentin 100 MG Cap PO SCH ×3 (08:36→21:18)
[2023-01-23] MEDS: Metoprolol Succinate 50 MG Tab.ER PO SCH (08:36)
[2023-01-23] MEDS: atorvaSTATin 20 MG Tab PO SCH (08:36)
[2023-01-23] MEDS: Venlafaxine 75 MG Cap.ER PO SCH (08:36)
[2023-01-23] MEDS: Magnesium Oxide 400 MG Tab PO SCH (08:36)
[2023-01-23] MEDS: Carboxymethylcellulose Sodium 1% Ophth Gel 15 ML Bottle EYEBOTH SCH ×2 (08:37→21:24)
[2023-01-23] MEDS: Insulin Lispro 100 Unit/ML 3 ML KwikPen SUBCUT SCH ×7 (08:37→21:34)
[2023-01-23] MEDS: Pantoprazole 40 MG Vial IVPUSH SCH ×2 (08:37→21:19)
[2023-01-23] MEDS: Insulin Glargine,Human Rec. Analog 100 Units/ML 3 ML Pen SUBCUT SCH (08:38)
[2023-01-23] MEDS: TERIFLUNOMIDE 14 MG PO SCH ×2 (08:38→12:44)
[2023-01-23] MEDS ORDERED: Sodium Chloride 0.9% 10 ML Syringe FLUSH ONE (10:52)
[2023-01-23] MEDS: Gadobenate Dimeglumine 529 MG/ML 15 ML SDV IVPUSH ONE ×2 (11:27→11:40)
[2023-01-23] MEDS: Sodium Chloride 0.9% 10 ML Syringe FLUSH PRN (11:36)
[2023-01-23] MEDS ORDERED: Gadobenate Dimeglumine 529 MG/ML 15 ML SDV IVPUSH ONE (11:40)
[2023-01-23] MEDS: Multivitamin Tab PO SCH ×2 (17:38→19:14)
[2023-01-23] MEDS: traZODone 50 MG Tab PO SCH (21:18)
[2023-01-23] MEDS: ARIPiprazole 5 MG Tab PO SCH (21:19)
[2023-01-24] MEDS: hydrALAZINE 20 MG/ML SDV IVPUSH PRN ×2 (05:16→22:28)
[2023-01-24] MEDS: Acetaminophen/oxyCODONE 325-5 MG Tab PO PRN ×3 (05:44→16:53)
[2023-01-24] MEDS: Baclofen 10 MG Tab PO SCH ×4 (06:35→22:28)
[2023-01-24] MEDS: Pantoprazole 40 MG Vial IVPUSH SCH ×2 (08:49→22:26)
[2023-01-24] MEDS: Enoxaparin 40 MG/0.4 ML Syringe SUBCUT SCH (08:49)
[2023-01-24] MEDS: Insulin Glargine,Human Rec. Analog 100 Units/ML 3 ML Pen SUBCUT SCH (08:50)
[2023-01-24] MEDS: Insulin Lispro 100 Unit/ML 3 ML KwikPen SUBCUT SCH ×7 (08:50→22:33)
[2023-01-24] MEDS: Carboxymethylcellulose Sodium 1% Ophth Gel 15 ML Bottle EYEBOTH SCH ×2 (08:50→22:37)
[2023-01-24] MEDS: Aspirin 81 MG Tab.EC PO SCH (08:51)
[2023-01-24] MEDS: Metoprolol Succinate 50 MG Tab.ER PO SCH (08:51)
[2023-01-24] MEDS: Gabapentin 100 MG Cap PO SCH ×3 (08:51→22:28)
[2023-01-24] MEDS: Venlafaxine 75 MG Cap.ER PO SCH (08:51)
[2023-01-24] MEDS: atorvaSTATin 20 MG Tab PO SCH (08:52)
[2023-01-24] MEDS: Magnesium Oxide 400 MG Tab PO SCH (08:52)
[2023-01-24] MEDS: amLODIPine 10 MG Tab PO SCH (08:52)
[2023-01-24] MEDS: TERIFLUNOMIDE 14 MG PO SCH (09:05)
[2023-01-24] MEDS: Multivitamin Tab PO SCH ×2 (16:54→18:07)
[2023-01-24] MEDS: traZODone 50 MG Tab PO SCH (22:26)
[2023-01-24] MEDS: ARIPiprazole 5 MG Tab PO SCH (22:27)
[2023-01-25] MEDS: Acetaminophen/oxyCODONE 325-5 MG Tab PO PRN ×3 (05:50→23:24)
[2023-01-25] MEDS: Insulin Lispro 100 Unit/ML 3 ML KwikPen SUBCUT SCH ×7 (08:19→20:40)
[2023-01-25] MEDS: Magnesium Oxide 400 MG Tab PO SCH (08:20)
[2023-01-25] MEDS: atorvaSTATin 20 MG Tab PO SCH (08:20)
[2023-01-25] MEDS: Metoprolol Succinate 50 MG Tab.ER PO SCH (08:21)
[2023-01-25] MEDS: Aspirin 81 MG Tab.EC PO SCH (08:21)
[2023-01-25] MEDS: Carboxymethylcellulose Sodium 1% Ophth Gel 15 ML Bottle EYEBOTH SCH ×2 (08:21→20:39)
[2023-01-25] MEDS: Gabapentin 100 MG Cap PO SCH ×3 (08:21→20:42)
[2023-01-25] MEDS: Pantoprazole 40 MG Vial IVPUSH SCH (08:21)
[2023-01-25] MEDS: amLODIPine 10 MG Tab PO SCH (08:21)
[2023-01-25] MEDS: Enoxaparin 40 MG/0.4 ML Syringe SUBCUT SCH (08:21)
[2023-01-25] MEDS: Venlafaxine 75 MG Cap.ER PO SCH (08:21)
[2023-01-25] MEDS: TERIFLUNOMIDE 14 MG PO SCH (08:22)
[2023-01-25] MEDS: Baclofen 10 MG Tab PO SCH ×4 (08:22→20:42)
[2023-01-25] MEDS: Insulin Glargine,Human Rec. Analog 100 Units/ML 3 ML Pen SUBCUT SCH (08:22)
[2023-01-25] MEDS: Multivitamin Tab PO SCH ×2 (17:26→18:55)
[2023-01-25] MEDS: ARIPiprazole 5 MG Tab PO SCH (20:41)
[2023-01-25] MEDS: traZODone 50 MG Tab PO SCH (20:42)
[2023-01-26] MEDS: hydrALAZINE 20 MG/ML SDV IVPUSH PRN (04:04)
[2023-01-26] MEDS: Baclofen 10 MG Tab PO SCH ×4 (06:37→21:05)
[2023-01-26] MEDS: Insulin Lispro 100 Unit/ML 3 ML KwikPen SUBCUT SCH ×7 (06:54→21:40)
[2023-01-26] MEDS: Acetaminophen/oxyCODONE 325-5 MG Tab PO PRN (08:14)
[2023-01-26] MEDS: Aspirin 81 MG Tab.EC PO SCH (08:14)
[2023-01-26] MEDS: Venlafaxine 75 MG Cap.ER PO SCH (08:15)
[2023-01-26] MEDS: atorvaSTATin 20 MG Tab PO SCH (08:15)
[2023-01-26] MEDS: Magnesium Oxide 400 MG Tab PO SCH (08:15)
[2023-01-26] MEDS: Metoprolol Succinate 50 MG Tab.ER PO SCH (08:15)
[2023-01-26] MEDS: amLODIPine 10 MG Tab PO SCH (08:15)
[2023-01-26] MEDS: Insulin Glargine,Human Rec. Analog 100 Units/ML 3 ML Pen SUBCUT SCH (08:16)
[2023-01-26] MEDS: TERIFLUNOMIDE 14 MG PO SCH (08:16)
[2023-01-26] MEDS: Enoxaparin 40 MG/0.4 ML Syringe SUBCUT SCH (08:16)
[2023-01-26] MEDS: Carboxymethylcellulose Sodium 1% Ophth Gel 15 ML Bottle EYEBOTH SCH ×2 (08:16→21:10)
[2023-01-26] MEDS: Gabapentin 100 MG Cap PO SCH ×3 (08:16→21:05)
[2023-01-26] MEDS: Multivitamin Tab PO SCH ×2 (16:40→18:22)
[2023-01-26] MEDS: traZODone 50 MG Tab PO SCH (21:05)
[2023-01-26] MEDS: ARIPiprazole 5 MG Tab PO SCH (21:05)
[2023-01-27] MEDS: Baclofen 10 MG Tab PO SCH ×4 (06:07→20:35)
[2023-01-27] MEDS: Insulin Lispro 100 Unit/ML 3 ML KwikPen SUBCUT SCH ×8 (06:35→21:05)
[2023-01-27] MEDS: Metoprolol Succinate 50 MG Tab.ER PO SCH (08:51)
[2023-01-27] MEDS: Aspirin 81 MG Tab.EC PO SCH (08:53)
[2023-01-27] MEDS: Enoxaparin 40 MG/0.4 ML Syringe SUBCUT SCH (08:53)
[2023-01-27] MEDS: atorvaSTATin 20 MG Tab PO SCH (08:53)
[2023-01-27] MEDS: Gabapentin 100 MG Cap PO SCH ×3 (08:54→20:35)
[2023-01-27] MEDS: Magnesium Oxide 400 MG Tab PO SCH (08:54)
[2023-01-27] MEDS: Carboxymethylcellulose Sodium 1% Ophth Gel 15 ML Bottle EYEBOTH SCH ×2 (08:54→20:39)
[2023-01-27] MEDS: amLODIPine 10 MG Tab PO SCH (08:54)
[2023-01-27] MEDS: Venlafaxine 75 MG Cap.ER PO SCH (08:55)
[2023-01-27] MEDS: Insulin Glargine,Human Rec. Analog 100 Units/ML 3 ML Pen SUBCUT SCH (09:06)
[2023-01-27] MEDS: TERIFLUNOMIDE 14 MG PO SCH (09:07)
[2023-01-27] MEDS: hydrALAZINE 20 MG/ML SDV IVPUSH PRN (18:36)
[2023-01-27] MEDS: Multivitamin Tab PO SCH (19:28)
[2023-01-27] MEDS: ARIPiprazole 5 MG Tab PO SCH (20:35)
[2023-01-27] MEDS: traZODone 50 MG Tab PO SCH (20:35)
[2023-01-28] MEDS: Acetaminophen/oxyCODONE 325-5 MG Tab PO PRN ×2 (00:29→13:59)
[2023-01-28] MEDS: Baclofen 10 MG Tab PO SCH ×4 (06:04→20:23)
[2023-01-28] MEDS: Insulin Lispro 100 Unit/ML 3 ML KwikPen SUBCUT SCH ×7 (07:47→21:23)
[2023-01-28] MEDS: Gabapentin 100 MG Cap PO SCH ×3 (09:03→20:23)
[2023-01-28] MEDS: Enoxaparin 40 MG/0.4 ML Syringe SUBCUT SCH (09:03)
[2023-01-28] MEDS: Magnesium Oxide 400 MG Tab PO SCH (09:03)
[2023-01-28] MEDS: atorvaSTATin 20 MG Tab PO SCH (09:03)
[2023-01-28] MEDS: Aspirin 81 MG Tab.EC PO SCH (09:03)
[2023-01-28] MEDS: Carboxymethylcellulose Sodium 1% Ophth Gel 15 ML Bottle EYEBOTH SCH ×2 (09:04→20:23)
[2023-01-28] MEDS: Venlafaxine 75 MG Cap.ER PO SCH (09:04)
[2023-01-28] MEDS: amLODIPine 10 MG Tab PO SCH (09:05)
[2023-01-28] MEDS: Metoprolol Succinate 50 MG Tab.ER PO SCH (09:14)
[2023-01-28] MEDS: TERIFLUNOMIDE 14 MG PO SCH (09:14)
[2023-01-28] MEDS: Insulin Glargine,Human Rec. Analog 100 Units/ML 3 ML Pen SUBCUT SCH (09:14)
[2023-01-28] MEDS: Multivitamin Tab PO SCH (18:14)
[2023-01-28] MEDS: traZODone 50 MG Tab PO SCH (20:23)
[2023-01-28] MEDS: ARIPiprazole 5 MG Tab PO SCH (20:23)
[2023-01-28] MEDS: hydrALAZINE 20 MG/ML SDV IVPUSH PRN (23:56)
[2023-01-29] MEDS: Acetaminophen/oxyCODONE 325-5 MG Tab PO PRN (02:08)
[2023-01-29] MEDS: Baclofen 10 MG Tab PO SCH ×4 (06:00→21:05)
[2023-01-29] MEDS: Venlafaxine 75 MG Cap.ER PO SCH (09:23)
[2023-01-29] MEDS: Aspirin 81 MG Tab.EC PO SCH (09:23)
[2023-01-29] MEDS: Gabapentin 100 MG Cap PO SCH ×3 (09:23→21:04)
[2023-01-29] MEDS: Magnesium Oxide 400 MG Tab PO SCH (09:24)
[2023-01-29] MEDS: amLODIPine 10 MG Tab PO SCH (09:24)
[2023-01-29] MEDS: Enoxaparin 40 MG/0.4 ML Syringe SUBCUT SCH (09:24)
[2023-01-29] MEDS: atorvaSTATin 20 MG Tab PO SCH (09:24)
[2023-01-29] MEDS: Insulin Lispro 100 Unit/ML 3 ML KwikPen SUBCUT SCH ×7 (09:24→21:05)
[2023-01-29] MEDS: Metoprolol Succinate 50 MG Tab.ER PO SCH (09:24)
[2023-01-29] MEDS: Carboxymethylcellulose Sodium 1% Ophth Gel 15 ML Bottle EYEBOTH SCH ×2 (09:27→21:05)
[2023-01-29] MEDS ORDERED: Insulin Glargine,Human Rec. Analog 100 Units/ML 3 ML Pen SUBCUT SCH (09:30)
[2023-01-29] MEDS: Insulin Glargine,Human Rec. Analog 100 Units/ML 3 ML Pen SUBCUT SCH (09:37)
[2023-01-29] MEDS: TERIFLUNOMIDE 14 MG PO SCH (09:38)
[2023-01-29] MEDS: Multivitamin Tab PO SCH (19:44)
[2023-01-29] MEDS: traZODone 50 MG Tab PO SCH (21:03)
[2023-01-29] MEDS: ARIPiprazole 5 MG Tab PO SCH (21:04)
[2023-01-30] MEDS: Acetaminophen 325 MG Tab PO PRN (00:08)
[2023-01-30] MEDS: Baclofen 10 MG Tab PO SCH (06:08)
[2023-01-30] MEDS: Insulin Lispro 100 Unit/ML 3 ML KwikPen SUBCUT SCH ×2 (07:24)
[2023-01-30 07:25] LABS: CORONAVIRUS COVID-19 NAA NEGATIVE (NEGATIVE)
[2023-01-30] MEDS: Magnesium Oxide 400 MG Tab PO SCH (08:09)
[2023-01-30] MEDS: Metoprolol Succinate 50 MG Tab.ER PO SCH (08:09)
[2023-01-30] MEDS: Aspirin 81 MG Tab.EC PO SCH (08:09)
[2023-01-30] MEDS: Gabapentin 100 MG Cap PO SCH (08:09)
[2023-01-30] MEDS: Venlafaxine 75 MG Cap.ER PO SCH (08:09)
[2023-01-30] MEDS: Enoxaparin 40 MG/0.4 ML Syringe SUBCUT SCH (08:10)
[2023-01-30] MEDS: atorvaSTATin 20 MG Tab PO SCH (08:10)
[2023-01-30] MEDS: amLODIPine 10 MG Tab PO SCH (08:10)
[2023-01-30 08:11] VITALS: BP 155/70; PULSE 97
[2023-01-30] MEDS: Carboxymethylcellulose Sodium 1% Ophth Gel 15 ML Bottle EYEBOTH SCH (08:15)
[2023-01-30] MEDS: TERIFLUNOMIDE 14 MG PO SCH (08:15)
[2023-01-30] MEDS ORDERED: Insulin Glargine,Human Rec. Analog 100 Units/ML 3 ML Pen SUBCUT SCH (09:00)
== END 2023-01-30 10:45 | disposition swing bed (61) | DRG 60 ==
LOC: JD.ED 10:55 → JD.MS 12:54
PROVIDERS: ADMIT Internal Medicine; ATTEND Internal Medicine
DX: G35 Multiple sclerosis (principal); E78.00 Pure hypercholesterolemia, unspecified; I10 Essential (primary) hypertension; K21.9 Gastro-esophageal reflux disease without esophagitis; F41.9 Anxiety disorder, unspecified; H54.7 Unspecified visual loss; M19.90 Unspecified osteoarthritis, unspecified site; E11.65 Type 2 diabetes mellitus with hyperglycemia; T38.0X5A Adverse effect of glucocorticoids and synthetic analogues, initial encounter; F32.A Depression, unspecified; Z20.822 Contact with and (suspected) exposure to COVID-19; Z96.642 Presence of left artificial hip joint; E66.9 Obesity, unspecified; Z90.89 Acquired absence of other organs; Z79.82 Long term (current) use of aspirin; Z79.899 Other long term (current) drug therapy; Z79.4 Long term (current) use of insulin; Z90.710 Acquired absence of both cervix and uterus; Z90.49 Acquired absence of other specified parts of digestive tract; Z98.890 Other specified postprocedural states; Z87.891 Personal history of nicotine dependence; Z68.31 Body mass index [BMI] 31.0-31.9, adult; Z88.5 Allergy status to narcotic agent; Z88.8 Allergy status to other drugs, medicaments and biological substances; Z88.0 Allergy status to penicillin
CPT/HCPCS: 0240U; 36415; 70553; 72156; 80048; 81001; 82947; 85025; 96365; 97110; 97116; 97162; 97166; 97530; 97535; 70450; 70450-26; 71045; 71045-26; 80053; 86140; 93005; 93010; 99222; 99231; 99232; 99239; 99283; 99285-25; A9270-GY; A9577; C9113; J0360; J1170; J1650; J1815; J1815-GY; J2930; J3490; J7050